=== PATIENT | male | born 1950 | race Caucasian/White ===

== ENCOUNTER 2017-03-28 18:12 | Inpatient (IN) | payer MEDICARE, MEDICAID ==
--- NOTE | 2017-03-28 18:33 | ED Physician Chart ---
Chief Complaint/HPI - Patient Information Date Seen:: 03/28/17 Time Seen:: 18:20 Chief Complaint:: agitation History of Present Illness:: Patient sent from a group home facility for admission to [facility] for increasing agitation. Allergies:: Allergies Allergy/AdvReac Type Severity Reaction Status Date / Time No Known Allergies Allergy Verified 01/21/17 21:22 Historian:: Patient Review:: Transfer documents Reviewed Review of Systems - Review of Systems General/Constitutional: No fever, No chills Skin: No skin lesions Head: No headache Eyes: No loss of vision ENT: No earache, No sore throat Neck: No neck pain, No swelling Cardio Vascular: No chest pain, No palpitations Pulmonary: No SOB, No cough GI: No nausea, No vomiting G/U: No dysuria, No hematuria Musculoskeletal: No bone or joint pain, No back pain, No muscle pain Endocrine: No polyuria, No polydipsia Psychiatric: Prior psych history Hematopoietic: No bruising Allergic/Immuno: No urticaria Neurological: No syncope, Focal symptoms Past Medical History - Past Medical History Past Medical History: Other (dysphagia arthritis; atherosclerotic heart disease ; diabetes; sarcoidosis peripheral vascular disease hypercholesterolemia left hemiplegia hypertension; hemolytic anemia; major depression status post gastrointestinal hemorrhage; chronic kidney disease; status post deep vein thrombosis) Family History: Other (unavailable; patient is confused) Social History: Care Facility Surgical History: other (unavailable) Psychiatricy History: Depression Medication: Reviewed Family Medical History - Family Member Mother History Unknown: Yes Physical Exam - Physical Examination Other Gen/Cons comments:: Mildly chronically ill-appearing; patient is confused; he states the year is 1470. Head: Atraumatic Eyes: Lids, conjuctiva normal, PERRL Skin: Nl inspection, No rash ENMT: External ears, nose nl, Lips, teeth, gums nl, Oropharynx nl Neck: No nuchal rigidity Respiratory: Nl effort/Exclusion, Clear to Auscultation, No Wheeze/Rhonchi/Rales Cardio Vascular: RRR, No murmur, gallop, rubs, NL S1 S2 GI: No tenderness/rebounding/guarding, No organomegaly, No hernia, Normal BS's : No CVA tenderness Other Extremities comments:: Paralysis left arm and left leg; left wrist and left hand contractured Labs/Radiology/EKG Results - Lab Results Results: Laboratory Results - last 24 hr 03/28/17 03/28/17 18:33 18:33 WBC 4.9 RBC 3.43 L Hgb 10.2 L Hct 29.8 L MCV 86.7 MCH 29.8 MCHC Differential 34.4 RDW 16.2 Plt Count 144 L MPV 6.3 Neutrophils % 53.9 Lymphocytes % 31.2 Monocytes % 8.3 Eosinophils % 4.7 Basophils % 1.9 Sodium 136 Potassium 4.1 Chloride 106 Carbon Dioxide 23.8 Anion Gap 10.3 BUN 40 H Creatinine 1.9 H Est GFR ( Amer) 45.6 Est GFR (Non-Af Amer) 37.7 BUN/Creatinine Ratio 21.1 Glucose 116 H Calcium 9.5 Total Bilirubin 0.3 AST 25 ALT 20 Alkaline Phosphatase 89 Total Protein 6.8 Albumin 3.4 L Globulin 3.4 Albumin/Globulin Ratio 1.0 Triglycerides 266 H Cholesterol 147 LDL Cholesterol Direct 79 HDL Cholesterol 24 - EKG Interpretations Rate & Rhythm: normal sinus rhythm with a rate of 72 Ranson: left axis deviation ED Septic Shock - . Is Septic Shock (SBP<90, OR Lactate>4 mmol\L) present?: No Reassessment (Disposition) - Reassessment Reassessment Condition:: Unchanged - Diagnosis Diagnosis:: Anemia; renal insufficiency; dementia with agitation; cerebrovascular accident with left hemiparalysis - Patient Disposition Admitted to:: [facility] Admitting Medical Physician:: Tam Gregg Admitting Psych Physician:: Jose Miguel Goode Condition at Disposition:: Stable, Unchanged
[2017-03-28 18:42] LABS: % BASOPHILS 1.9 % (0.0-2.0); % EOSINOPHILS 4.7 % (0.0-5.0); % LYMPHOCYTES 31.2 % (20.0-50.0); % MONOCYTES 8.3 % (2.0-10.0); % NEUTROPHILS 53.9 % (40.0-80.0); HEMATOCRIT 29.8 % (39.0-49.0); HEMOGLOBIN 10.2 gm/dL (12.6-17.4); MEAN CELL VOLUME 86.7 fl (80-99); MEAN CORPUSCULAR HEMOGLOBIN 29.8 pg (27.0-31.0); MEAN CORPUSCULAR HGB CONC 34.4 pg (28.0-36.0); MEAN PLATELET VOLUME 6.3 fl; NEUTROPHILE ABSOLUTE 2.7 Th/cmm (1.8-8.0); PLATELET COUNT 144 Th/cmm (150-400); RED BLOOD COUNT 3.43 Mil/cmm (3.80-5.80); RED CELL DISTRIBUTION WIDTH 16.2 % (11.5-20.0); WHITE BLOOD COUNT 4.9 Th/cmm (4.8-10.8)
[2017-03-28 18:57] LABS: ANION GAP 10.3 (7.0-16.0); BILIRUBIN,TOTAL 0.3 mg/dL (0.3-1.0); BUN/CREATININE RATIO 21.1; CALCIUM SERUM 9.5 mg/dL (8.6-10.3); CARBON DIOXIDE 23.8 mEq/L (21.0-31.0); CREATININE - SERUM 1.9 mg/dL (0.7-1.3); POTASSIUM SERUM 4.1 mEq/L (3.5-5.1)
[2017-03-28 20:11] VITALS: BP 107/53
[2017-03-28] MEDS ORDERED: Maalox 30 mL Cup PO PRN (20:14)
[2017-03-28] MEDS ORDERED: Fleet Enema 135 mL RC PRN (20:14)
[2017-03-28] MEDS ORDERED: Magnesium Hydroxide (MOM) 30 mL UDC PO PRN (20:21)
[2017-03-28] MEDS: INSULIN ASPART SLIDING SCALE 100 UNITS/ML UNIT SUBQ SCH (21:13)
[2017-03-28] MEDS: Atorvastatin Calcium 10 MG TAB PO SCH (21:13)
[2017-03-28 23:40] LABS: URINE BILIRUBIN NEGATIVE (NEGATIVE); URINE BLOOD NEGATIVE (NEGATIVE); URINE COLOR YELLOW; URINE GLUCOSE (UA) NEGATIVE (NEGATIVE); URINE KETONE NEGATIVE (NEGATIVE); URINE PROTEIN NEGATIVE (NEGATIVE)
[2017-03-28 23:41] LABS: URINE BACTERIA FEW /hpf (NONE SEEN); URINE EPITHELIAL CELLS RARE /lpf (FEW); URINE RBC NONE SEEN /hpf (0-5); URINE WBC 0-2 /hpf (0-5)
[2017-03-29] MEDS: INSULIN ASPART SLIDING SCALE 100 UNITS/ML UNIT SUBQ SCH ×4 (06:48→21:26)
[2017-03-29] MEDS: Dextromethorphan/Quinidine 20mg/10mg Cap PO SCH ×2 (08:57→16:43)
[2017-03-29] MEDS: Vitamin D3 2,000 IU SGL PO SCH ×2 (08:57→16:43)
[2017-03-29] MEDS: Lactobacillus Rhamnosus 10 Billion CFU Capsule PO SCH (08:57)
[2017-03-29] MEDS ORDERED: Non-Formulary Item 1 EA (Amino Acids/Protein Hydrolys [Pro-Stat Sugar Free Liquid] 30 ML) PO SCH (09:00)
[2017-03-29] MEDS ORDERED: Hydrocodone/APAP 5mg/325mg Tab PO PRN (09:05)
--- NOTE | 2017-03-29 10:39 | History & Physical ---
ADMIT DATE: 03/28/2017 PATIENT IDENTIFICATION: A 67-year-old male. REQUESTING PHYSICIAN: Dr. Goode. PRESENTING COMPLAINT: "Why am I here, I want to go home." HISTORY OF PRESENT ILLNESS: This is a 67-year-old male who resides at [facility], has multiple medical problems, recently noted by nursing staff that the patient was having aggressive behavior, spitting, and masturbating in front of female staff. The patient was sent to Emergency Room where the patient was advised to be admitted after being evaluated by [facility] Geropsych Unit. PAST MEDICAL HISTORY: Remarkable for: 1. Diabetes. 2. Hypertension. 3. Hyperlipidemia. 4. DVT. 5. CVA with left-sided weakness. 6. DJD. 7. Anxiety, depression. 8. History of sarcoidosis. MEDICATIONS: List has been reviewed and reconciled. ALLERGIES: None. SOCIAL HISTORY: Lives in a halfway. No smoking cigarette, alcohol or drug use. FAMILY MEDICAL HISTORY: Remarkable for diabetes and hypertension. REVIEW OF SYSTEMS: The patient currently denies any headache, blurred vision, double vision, dysphagia, odynophagia, runny nose, stuffy nose, fever, chills, cough, chest pain, shortness of breath, palpitation, dizziness, nausea, vomiting, diarrhea, no history of any hematemesis, hematuria, hematochezia, or melena. PHYSICAL EXAMINATION: GENERAL: Alert, awake, oriented, lying in the bed without any acute distress. VITAL SIGNS: Temperature 99, pulse is 74, respiratory rate 18, blood pressure 132/70. SKIN: Warm to touch. HEENT: Normocephalic, atraumatic. Extraocular muscles are intact. Tongue was pink and coated. Poor dentition with no oral lesion, no exudate. No sinus tenderness. NECK: Supple, no JVD, no hepatojugular reflux. No lymphadenopathy, thyromegaly or carotid bruit. HEART: Both heart sounds are regular. No S3, no S4, no murmur. CHEST: Lung equal in expansion, no wheezing, no crackles. ABDOMEN: Soft. No guarding, no rigidity. Liver, spleen not palpable. No palpable mass. EXTREMITIES: No edema, no cyanosis or clubbing. Peripheral pulses +1. No calf tenderness noted. NEUROLOGIC: Alert, awake, and oriented to time, place, person, 2-12 cranial nerves are intact. Power in upper extremity and lower extremity on the right side is 5+, lower extremity left-sided weakness with spasticity noted. AVAILABLE DIAGNOSTIC DATA: Performed in the Emergency Room. Urinalysis is normal. BUN and creatinine is 40 and 1.9. Electrolytes are within normal limits. TSH of 2.65, triglyceride of 266. HDL and LDL are normal. White count 4.9, hemoglobin 10.2, platelet count of 144. Other diagnostic data are unavailable for review. CLINICAL IMPRESSION: 1. Psychotic disorder. 2. Diabetes. 3. Hypertension. 4. Hyperlipidemia. 5. History of deep venous thrombosis. 6. Degenerative joint disease. 7. Chronic kidney disease. 8. Normocytic normochromic anemia secondary to anemia of inflammation. 9. Debility. 10. ____ with left-sided weakness. 11. History of sarcoidosis. 12. Coronary artery disease. 13. Fall risk. PLAN: 1. The patient is to be admitted to Geropsych Unit for psychiatric management by Dr. Goode. 2. Appropriate home medicine reconciliation for his underlying medical problems, which include diabetes, hypertension, hyperlipidemia, coronary artery disease, DJD. The patient is to have fall precautions, general nursing care along with monitoring the vital signs, blood sugar, and for behavior. We will continue to follow this patient during the stay at the Geropsych Unit at the [facility]. I sincerely thank you, Dr. Jose Miguel Goode for giving me the opportunity to participate in patient of yours. JOB# [id number]
[2017-03-29] MEDS: Atorvastatin Calcium 10 MG TAB PO SCH (20:19)
--- NOTE | 2017-03-29 23:05 | Admit Criteria Form ---
Admit Criteria Forms - Admit Criteria Diagnosis: PSYCHIATRIC DISORDERS (Place 'X' for any and all applicable criteria): Ongoing inpatient care may be needed for 1 or more of the following(1)(2)(3)(4)( 6)(7)(8): [ ]I. Danger to self or others not manageable at lower level of care. [ ]II. Grave disability (eg, inability to perform self care necessary at lower level of care) [X ]III. Agitation or inappropriate behavior interfering with care for primary condition (eg, attempting to discontinue lines or drains prematurely, unable to cooperate with respiratory care) [ ]IV. Severe disability or disorder indicated by ALL of the following: [ ]a) Severe behavioral health disorder-related symptoms or condition indicated by 1 or more of the following: [ ]i) Severe problem with cognition, memory, judgment, or impulse control [ ]ii) Severe clinical manifestations (eg, hallucinations, delusions, other acute psychotic symptoms, jolynn, extreme agitation or anxiety) [ ]b) Patient management at lower level of care is not feasible until acute intervention or modification is initiated. Extended stay beyond goal length of stay for the primary condition may be needed until ALLof the following are present(1)(2)(3)(4)(722)(23): [ ]a) Danger to self or others is absent or manageable at lower level of care [ ]b) Behavior crisis management, including physical or chemical restraints, is required and is not available at a lower level of care. [ ]c) Behavioral symptoms (e.g., agitation, somnolence, inappropriate behavior) are present, and are not manageable at a lower level of care. [ ]d) Patient cannot understand follow-up treatment and crisis plan. [ ]e) Provider and supports are sufficiently available at lower level of care. [ ]f) Patient can participate (e.g., verify absence of plan for harm) and is in needed of monitoring. The original [facility] content created by [facility] [employer] has been revised. The portions of the content which have been revised are identified through the use of italic text or in bold, and [facility] [employer] has neither reviewed nor approved the modified material. All other unmodified content is copyright [facility]. Please see references footnoted in the original [facility] edition 2017 Admit Criteria Met?: Yes
--- NOTE | 2017-03-30 02:09 | Psychosocial Evaluation ---
DATE OF SERVICE: 03/29/2017 AGE: 67. SEX: Male. PHYSICIAN: Dr. Goode. CHIEF COMPLAINT: Agitation and aggressive behavior. HISTORY OF PRESENT ILLNESS: The patient is a 67-year-old male who was admitted to the hospital from [facility] because of increased agitation and aggressive behavior. The patient has been screaming and yelling and throwing food and other objects at staff in the facility. Also, has not been able to follow any of staff directions. The patient also has been suspicious and has been paranoid. The patient also has been forgetful. He is also responding to directions by yelling and screaming. PAST PSYCHIATRIC HISTORY: The patient has history of what seems to be dementia with psychosis. The patient is taking Nuedexta, Remeron and Zyprexa. PAST MEDICAL HISTORY: The patient is under the care of Dr. Gregg with no major medical problems. SOCIAL HISTORY: The patient lives in [facility]. No known alcohol or drug use. ALLERGIES: No known allergies. MENTAL STATUS EXAMINATION: The patient appears his stated age. Anxious. Restless. In irritable mood. Disheveled. Thought processes are circumstantial with flight of ideas. The patient is suspicious and paranoid, but he denies auditory or visual hallucinations. The patient denies suicidal or homicidal ideations. The patient is alert, but disoriented to time, place, person and situation. Impaired immediate and recent memory, but intact remote memory. Poor insight. Poor judgment. ASSESSMENT: PRIMARY DIAGNOSIS: Unspecified psychosis. SECONDARY DIAGNOSIS: Dementia, moderate to severe. TREATMENT PLAN: We will monitor the patient's behavior closely. Continue Zyprexa, Remeron and Nuedexta. We will follow up and do behavioral modification. ESTIMATED LENGTH OF STAY: 7-10 days. THE PATIENT'S STRENGTHS AND WEAKNESSES: The patient's strength is not clear at this time. Weaknesses is his ineffective coping and poor impulse control. AFTER DISCHARGE PLAN: Outpatient treatment and followup, will continue as an outpatient. CRITERIA FOR DISCHARGE: The patient will not be psychotic and have better impulse control and we will stabilize psychotropic medications. JOB# [id number]
[2017-03-30] MEDS: INSULIN ASPART SLIDING SCALE 100 UNITS/ML UNIT SUBQ SCH ×4 (06:58→20:39)
[2017-03-30] MEDS: Aspirin 81mg Chewable Tab PO SCH (09:12)
[2017-03-30] MEDS: Lactobacillus Rhamnosus 10 Billion CFU Capsule PO SCH (09:13)
[2017-03-30] MEDS: Dextromethorphan/Quinidine 20mg/10mg Cap PO SCH ×2 (09:13→17:28)
[2017-03-30] MEDS: Vitamin D3 2,000 IU SGL PO SCH ×2 (09:13→17:15)
--- NOTE | 2017-03-30 12:02 | Progress Notes ---
DATE: 03/30/2017 SUBJECTIVE: The patient seen, chart reviewed, discussed with staff. The patient is currently in the hospital _[facility] facility, increasing agitation and aggressive behaviors. He remains confused, forgetful, screaming, yelling, guarded, irritable. States he is here for "hernia operation." Has actually no idea why he is here, poorly oriented, somewhat restless, currently on olanzapine 10 mg twice daily, recent dose increased, initiation of this higher dose, also on mirtazapine tolerating well. No side effects. ASSESSMENT: The patient remains symptomatic, aggressive, screaming, yelling, confused, disoriented. PLAN: We will continue to monitor and titrate medications. Given continued safety concerns, they are continued concerns about discharge to a lower level of care. [facility]# [id number]
[2017-03-30] MEDS: Atorvastatin Calcium 10 MG TAB PO SCH (20:38)
[2017-03-31] MEDS: INSULIN ASPART SLIDING SCALE 100 UNITS/ML UNIT SUBQ SCH ×4 (06:44→20:56)
[2017-03-31] MEDS: Aspirin 81mg Chewable Tab PO SCH (09:16)
[2017-03-31] MEDS: Vitamin D3 2,000 IU SGL PO SCH ×2 (09:19→17:00)
[2017-03-31] MEDS: Dextromethorphan/Quinidine 20mg/10mg Cap PO SCH ×2 (09:20→17:01)
[2017-03-31] MEDS: Lactobacillus Rhamnosus 10 Billion CFU Capsule PO SCH (09:21)
--- NOTE | 2017-03-31 12:59 | Progress Notes ---
DATE: 03/31/2017 SUBJECTIVE: The patient seen, chart reviewed, discussed with staff. The patient is here due to agitation, aggressive behaviors, very confused, disoriented. Does not really know what is going on, remains intrusive, impulsive, unpredictable, history of dementia, CVA. Medications reviewed. Labs were reviewed. No side effects noted. ASSESSMENT: The patient remains symptomatic, aggressive, impulsive, unpredictable, here with agitation, combative behaviors. PLAN: We will continue to monitor, continue olanzapine at current dose, given safety concerns, there are continued risks to others given his presentation and we also need to confirm placement. He is to care for his basic needs. JOB# [id number]
[2017-03-31] MEDS: Atorvastatin Calcium 10 MG TAB PO SCH (20:52)
[2017-04-01] MEDS: INSULIN ASPART SLIDING SCALE 100 UNITS/ML UNIT SUBQ SCH ×2 (06:43→22:11)
[2017-04-01] MEDS: Dextromethorphan/Quinidine 20mg/10mg Cap PO SCH ×2 (09:33→17:11)
[2017-04-01] MEDS: Vitamin D3 2,000 IU SGL PO SCH ×2 (09:33→17:12)
[2017-04-01] MEDS: Lactobacillus Rhamnosus 10 Billion CFU Capsule PO SCH (09:33)
[2017-04-01] MEDS: Aspirin 81mg Chewable Tab PO SCH (09:33)
[2017-04-01] MEDS: Atorvastatin Calcium 10 MG TAB PO SCH (20:31)
[2017-04-02] MEDS: INSULIN ASPART SLIDING SCALE 100 UNITS/ML UNIT SUBQ SCH ×4 (06:29→20:22)
--- NOTE | 2017-04-02 09:19 | General Progress Note ---
Subjective - Review of Systems Subjective: Patient is seen and examined. Patient has a fluctuating mental status with aggressive behavior and aggresive behavior. Last 24-hour events noted. Glucoscan reviewed. MAR reviewed. Objective - Results Result Diagrams: 03/28/17 18:33 03/28/17 18:33 Recent Labs: Laboratory Last Values WBC 4.9 Th/cmm (4.8-10.8) 03/28/17 18:33 RBC 3.43 Mil/cmm (3.80-5.80) L 03/28/17 18:33 Hgb 10.2 gm/dL (12.6-17.4) L 03/28/17 18:33 Hct 29.8 % (39.0-49.0) L 03/28/17 18: MCV 86.7 fl (80-99) 03/28/17 18: MCH 29.8 pg (27.0-31.0) 03/28/17 18: MCHC Differential 34.4 pg (28.0-36.0) 03/28/17 18:33 RDW 16.2 % (11.5-20.0) 03/28/17 18:33 Plt Count 144 Th/cmm (150-400) L 03/28/17 18:33 MPV 6.3 fl 03/28/17 18:33 Neutrophils % 53.9 % (40.0-80.0) 03/28/17 18:33 Lymphocytes % 31.2 % (20.0-50.0) 03/28/17 18: Monocytes % 8.3 % (2.0-10.0) 03/28/17 18:33 Eosinophils % 4.7 % (0.0-5.0) 03/28/17 18:33 Basophils % 1.9 % (0.0-2.0) 03/28/17 18:33 Sodium 136 mEq/L (136-145) 03/28/17 18:33 Potassium 4.1 mEq/L (3.5-5.1) 03/28/17 18:33 Chloride 106 mEq/L (98-107) 03/28/17 18:33 Carbon Dioxide 23.8 mEq/L (21.0-31.0) 03/28/17 18:33 Anion Gap 10.3 (7.0-16.0) 03/28/17 18:33 BUN 40 mg/dL (7-25) H 03/28/17 18:33 Creatinine 1.9 mg/dL (0.7-1.3) H 03/28/17 18:33 Est GFR ( Amer) 45.6 ml/min (>90) 03/28/17 18:33 Est GFR (Non-Af Amer) 37.7 ml/min 03/28/17 18:33 BUN/Creatinine Ratio 21.1 03/28/17 18:33 Glucose 116 mg/dL (70-105) H 03/28/17 18:33 POC Glucose 79 MG/DL (70 - 105) 04/02/17 06:14 Calcium 9.5 mg/dL (8.6-10.3) 03/28/17 18:33 Total Bilirubin 0.3 mg/dL (0.3-1.0) 03/28/17 18:33 AST 25 U/L (13-39) 03/28/17 18:33 ALT 20 U/L (7-52) 03/28/17 18:33 Alkaline Phosphatase 89 U/L (34-104) 03/28/17 18:33 Total Protein 6.8 gm/dL (6.0-8.3) 03/28/17 18:33 Albumin 3.4 gm/dL (4.2-5.5) L 03/28/17 18:33 Globulin 3.4 gm/dL 03/28/17 18:33 Albumin/Globulin Ratio 1.0 (1.0-1.8) 03/28/17 18:33 Triglycerides 266 mg/dL (<150) H 03/28/17 18:33 Cholesterol 147 mg/dL (<200) 03/28/17 18:33 LDL Cholesterol Direct 79 mg/dL (75-193) 03/28/17 18:33 HDL Cholesterol 24 mg/dL (23-92) 03/28/17 18:33 TSH 2.65 uIU/ml (0.34-5.60) 03/28/17 18:33 Urine Source CLEAN C 03/28/17 20:00 Urine Color YELLOW 03/28/17 20:00 Urine Clarity CLEAR (CLEAR) 03/28/17 20:00 Urine pH 6.0 03/28/17 20:00 Ur Specific [place] 1.020 (1.005-1.030) 03/28/17 20:00 Urine Protein NEGATIVE mg/dL (NEGATIVE) 03/28/17 20:00 Urine Glucose (UA) NEGATIVE mg/dL (NEGATIVE) 03/28/17 20:00 Urine Ketones NEGATIVE mg/dL (NEGATIVE) 03/28/17 20:00 Urine Blood NEGATIVE (NEGATIVE) 03/28/17 20:00 Urine Nitrate NEGATIVE (NEGATIVE) 03/28/17 20:00 Urine Bilirubin NEGATIVE (NEGATIVE) 03/28/17 20:00 Urine Urobilinogen 1.0 E.U./dL (0.2 - 1.0) 03/28/17 20:00 Ur Leukocyte Esterase NEGATIVE (NEGATIVE) 03/28/17 20:00 Urine RBC NONE SEEN /hpf (0-5) 03/28/17 20:00 Urine WBC 0-2 /hpf (0-5) 03/28/17 20:00 Ur Epithelial Cells RARE /lpf (FEW) 03/28/17 20:00 Urine Bacteria FEW /hpf (NONE SEEN) 03/28/17 20:00 RPR NONREACTIVE (NONREACTIVE) 03/28/17 18:33 - Physical Exam Vitals and I&O: Vital Signs Temp 98.2 F 04/01/17 14:00 Pulse 90 04/01/17 17:11 Resp 20 04/01/17 14:00 BP 149/80 04/01/17 17:11 Pulse Ox 98 04/01/17 14:00 Intake & Output 04/01/17 04/02/17 04/02/17 18:59 06:59 18:59 Intake Total 900 60 Balance 900 60 Weight (lbs) 85.411 kg Intake: Oral 900 60 Other: # Voids 3 1 # Bowel Movements 1 1 Active Medications: Current Medications Acetaminophen (Tylenol) 650 mg PO Q6H PRN PRN Reason: Mild Pain/Headache/T above 101 Stop: 05/27/17 20:13 Acetaminophen/Hydrocodone Bitart ([place] 5mg/325mg) 1 tab PO Q6H PRN PRN Reason: Moderate Pain Stop: 05/28/17 09:04 Al Hydrox/Mg Hydrox/Simethicone (Maalox) 30 ml PO Q6H PRN PRN Reason: Dyspepsia Stop: 05/27/17 20:13 Aspirin (Aspirin Chewable) 81 mg PO DAILY [facility] Stop: 05/29/17 08:59 Last Admin: 04/01/17 09:33 Dose: 81 mg Atorvastatin Calcium (Lipitor) 10 mg PO HS KENDRICK PRN Reason: Protocol Stop: 05/27/17 20:59 Last Admin: 04/01/17 20:31 Dose: 10 mg Carvedilol (Coreg) 12.5 mg PO BID KENDRICK Stop: 05/28/17 08:59 Last Admin: 04/01/17 17:11 Dose: 12.5 mg Cholecalciferol (Vitamin D3) 1,000 iu PO BID KENDRICK Stop: 05/28/17 08:59 Last Admin: 04/01/17 17:12 Dose: 1,000 iu Clopidogrel Bisulfate (Plavix) 75 mg PO DAILY KENDRICK Stop: 05/29/17 08:59 Last Admin: 04/01/17 09:32 Dose: 75 mg Dextromethorphan/Quinidine (Nuedexta 20mg-10mg) 1 cap PO BID KENDRICK Stop: 05/28/17 08:59 Last Admin: 04/01/17 17:11 Dose: 1 cap Docusate Sodium (Colace) 100 mg PO BID KENDRICK Stop: 05/28/17 08:59 Last Admin: 04/01/17 17:12 Dose: 100 mg Duloxetine HCl (Cymbalta) 60 mg PO DAILY [facility] PRN Reason: Protocol Stop: 05/29/17 08:59 Last Admin: 04/01/17 09:32 Dose: 60 mg Folic Acid (Folate) 1 mg PO DAILY KENDRICK Stop: 05/29/17 08:59 Last Admin: 04/01/17 09:33 Dose: 1 mg Insulin Aspart (Novolog Insulin Sliding Scale) 0 units SUBQ ACHS KENDRICK PRN Reason: Protocol Stop: 05/27/17 20:59 Last Admin: 04/02/17 06:29 Dose: Not Given Lactobacillus Rhamnosus (Culturelle) 1 each PO DAILY KENDRICK Stop: 05/28/17 08:59 Last Admin: 04/01/17 09:33 Dose: 1 each Lorazepam (Ativan) 1 mg PO Q6H PRN; Protocol PRN Reason: Anxiety/Agitation Stop: 05/27/17 20:13 Last Admin: 04/02/17 01:23 Dose: 1 mg Losartan Potassium (Cozaar) 50 mg PO DAILY KENDRICK Stop: 05/28/17 08:59 Last Admin: 04/01/17 09:34 Dose: Not Given Magnesium Hydroxide (Milk Of Magnesia) 30 ml PO HS PRN PRN Reason: Constipation Stop: 05/27/17 20:20 Megestrol Acetate (Megace) 400 mg PO BID KENDRICK Stop: 05/28/17 16:59 Last Admin: 04/01/17 09:34 Dose: Not Given Mirtazapine (Remeron) 30 mg PO HS KENDRICK Stop: 05/27/17 20:59 Last Admin: 04/01/17 20:31 Dose: 30 mg Olanzapine (Zyprexa) 10 mg PO BID KENDRICK PRN Reason: Protocol Stop: 05/29/17 08:59 Last Admin: 04/01/17 17:12 Dose: 10 mg Sodium Phosphate (Fleet Enema) 135 ml RC DAILY PRN PRN Reason: Constipation Stop: 05/27/17 20:13 Temazepam (Restoril) 15 mg PO HS PRN; Protocol PRN Reason: Insomnia Stop: 05/27/17 20:20 Last Admin: 04/01/17 20:32 Dose: 15 mg Vitamin D (Vitamin D3) 4,000 iu PO BID KENDRICK Stop: 05/28/17 08:59 Last Admin: 04/01/17 17:12 Dose: 4,000 iu General: Alert, No acute distress HEENT: Atraumatic, EOMI Neck: Supple, JVD Cardiovascular: Regular rate, Normal S1, Normal S2, Systolic murmurs Lungs: Clear to auscultation Abdomen: Bowel sounds, Soft Extremities: Other (no edema, cyanosis, clubbing.) Neurological: Other (significant spasticity and weakness on the left side noted. ) Psych/Mental Status: Other (labile mental status.) Assessment/Plan - Assessment Assessment: Psychiatric disorder Diabetes mellitus. Hypertension. CVA with left-sided weakness. DJD. Fall risk. History of sarcoidosis. History of DVT. Upper GI bleed history. - Plan Plan: After reviewing the record and assessment patient will be continued on current medication as patient is receiving for his underlying problems for diabetes, hypertension, CVA, DJD, and history of DVT. Patient will continue to receive psychiatric treatment with psychiatrist as prescribed. Patient will get general care ,fall precautions ,nutritional supplement along with the monitoring of diabetes and hypertension. Nutritional Asmnt/Malnutr-PDOC - Dietary Evaluation Malnutrition Findings (Please click <Entered> for more info): Nutritional Asmnt/Malnutrition Start: 04/01/17 12: 39 Text: Status: Complete Freq: Document 04/01/17 12:39 GSUN (Rec: 04/01/17 13:07 GSUN [email or web address]) Nutritional Asmnt/Malnutrition Patient General Information Nutritional Screening Moderate Risk Screening Diagnosis Unspecified psychosis Pertinent Medical Hx/Surgical Hx DM, HTN, hyperlipidemia, DVT, CVA with left sided wekaness, DJD, anxiety, dperession, hx sarcoidosis Subjective Information 67 year old male from SNF. Per nursing staff, pt may be inappropriate towards staff at times. Pt was quiet, selectively responded, mostly answered yes or no during visit. Avg PO intake 63% of past 6 meals, meeting 55% lower end kcal and 74% prot needs. Pt denied GI problems, denied allergies, denied nutritional concerns. Teeth intact. RD informed pt not meeting nutritional needs, encouraged PO intake, pt remained silent. Mild wasting to clavicles. Pt report UBW 200lb, bedscale 188.3lb during visit, does not know weight trend. Current Diet Order/ Nutrition Support [facility] Pertinent Medications Maalox, Lipitor, Vitamin D3, Colace, Folate, Novolog, Culturelle, MOM, Megace, Fleet Enema, Vitamin D3 Pertinent Labs 03/28: BUN 40H, creatinine 1.9H , triglycerides 266H 04/01: POC glucose 87-142 since adm Nutritional Hx/Data Height 1.8 m Height (Calculated Centimeters) 180.3 Current Weight (lbs) 85.411 kg Weight (Calculated Kilograms) 85.4 Weight (Calculated Grams) 06631.4 Usual body Weight (lbs) 200 [place] Body Weight 172 Weight Status Overweight GI Symptoms Usual diet at home [facility]: [facility] soft Skin Integrity/Comment: Andre Hobbs stitcher utility: dryness. Current %PO Fair (50-74%) Estimated Nutritional Goals Calories/Kcals/Kg IBW 172lb/78.2kg Kcals Calculated 1955-2346kcal (25-30kcal/kg) Protein Calculated 78g (1g/kg) Fluid: ml 1955-2346ml (1ml/kcal) Nutritional Problem 2. Problem Problem Inadequate oral food beverage intake related to Etiology unknown etiology aeb Signs/Symptoms: PO intake meeting 55% lower end kcal and 74% prot needs. 1. Problem Problem Altered nutrition related laboraotry values related to Etiology DM aeb Signs/Symptoms: H&P, elevated POC glucose Intervention/Recommendation Comments 1. Recommend [id number] RONEN ground to meet nutritional needs while promoting glycemic control. 2. Continue with Boost Glucose Control TID. 3. Avg PO intake is inadequate , meeting 55% lower end of kcal needs. Nursing staff to encourage and assist with meals as needed. 4. Remove "HPN - sugar free with meals for supplement 8oz TID," FNS does not honor. Expected Outcomes/Goals Expected Outcomes/Goals 1. PO intake to meet at least 75% of estimated nutritional needs.
[2017-04-02] MEDS: Vitamin D3 2,000 IU SGL PO SCH ×2 (09:48→17:19)
[2017-04-02] MEDS: Lactobacillus Rhamnosus 10 Billion CFU Capsule PO SCH (09:49)
[2017-04-02] MEDS: Aspirin 81mg Chewable Tab PO SCH (09:49)
[2017-04-02] MEDS: Dextromethorphan/Quinidine 20mg/10mg Cap PO SCH ×2 (09:49→17:19)
[2017-04-02] MEDS: Atorvastatin Calcium 10 MG TAB PO SCH (20:19)
--- NOTE | 2017-04-02 21:14 | Progress Notes ---
DATE: 04/02/2017 SUBJECTIVE: Chart reviewed and the patient interviewed. Also, discussed the patient's condition with the staff and reviewed records and labs. The patient continues to scream, "help, help." When staff tried to approach him and ask him what he needs to help to, he is unable to answer. He is still in angry and in irritable mood, and he is still suspicious and paranoid. The patient also still has labile affect. He also still seems to be preoccupied and talking to self. He is also showing inappropriate behavior and masturbating in front of staff and still at times has some verbal commands. Otherwise, the patient is compliant with taking his medications. ASSESSMENT: The patient is still psychotic. TREATMENT PLAN: We will continue to monitor his behavior and his condition closely. Also, we will continue to work on his irritability and inappropriate behavior. Also, Zyprexa was increased to 10 mg twice a day. We will continue same dose and continue to follow up closely. [facility]# [id number]
[2017-04-03] MEDS: INSULIN ASPART SLIDING SCALE 100 UNITS/ML UNIT SUBQ SCH ×4 (06:31→20:45)
[2017-04-03] MEDS: Lactobacillus Rhamnosus 10 Billion CFU Capsule PO SCH (08:36)
[2017-04-03] MEDS: Dextromethorphan/Quinidine 20mg/10mg Cap PO SCH ×2 (08:36→16:34)
[2017-04-03] MEDS: Vitamin D3 2,000 IU SGL PO SCH ×2 (08:36→16:34)
[2017-04-03] MEDS: Aspirin 81mg Chewable Tab PO SCH (08:37)
--- NOTE | 2017-04-03 20:27 | Progress Notes ---
DATE: 04/02/2017 SUBJECTIVE: Chart was reviewed. The patient interviewed. Also, discussed the patient's condition with the staff and reviewed records and labs. The patient continued to be in angry and in irritable mood. The patient also still has episodes of screaming "help, help." He is unable to express himself and when the staff approaches him to help him, he has no reason to scream and yell and he needs nothing .. At the same time, the patient is still restless and disheveled and has nasty language and makes comments to staff. ASSESSMENT: The patient is still psychotic and agitated. TREATMENT PLAN: Continue Zyprexa in a dose of 10 mg twice a day. Also, continue to work on his irritability and his anger, and we will continue to follow up closely. JOB# [id number]
[2017-04-03] MEDS: Atorvastatin Calcium 10 MG TAB PO SCH (20:44)
--- NOTE | 2017-04-03 22:03 | Internal Medicine Prog Note ---
Internal Medicine Subjective - Subjective Service Date: 04/03/17 Patient seen and examined:: without staff Patient is:: awake, in bed, confused Per staff patient has:: no adverse event Internal Medicine Objective - Results Result Diagrams: 03/28/17 18:33 03/28/17 18:33 Recent Labs: Laboratory Last Values WBC 4.9 Th/cmm (4.8-10.8) 03/28/17 18:33 RBC 3.43 Mil/cmm (3.80-5.80) L 03/28/17 18:33 Hgb 10.2 gm/dL (12.6-17.4) L 03/28/17 18:33 Hct 29.8 % (39.0-49.0) L 03/28/17 18: MCV 86.7 fl (80-99) 03/28/17 18: MCH 29.8 pg (27.0-31.0) 03/28/17 18: MCHC Differential 34.4 pg (28.0-36.0) 03/28/17 18:33 RDW 16.2 % (11.5-20.0) 03/28/17 18:33 Plt Count 144 Th/cmm (150-400) L 03/28/17 18:33 MPV 6.3 fl 03/28/17 18:33 Neutrophils % 53.9 % (40.0-80.0) 03/28/17 18:33 Lymphocytes % 31.2 % (20.0-50.0) 03/28/17 18: Monocytes % 8.3 % (2.0-10.0) 03/28/17 18:33 Eosinophils % 4.7 % (0.0-5.0) 03/28/17 18:33 Basophils % 1.9 % (0.0-2.0) 03/28/17 18:33 Sodium 136 mEq/L (136-145) 03/28/17 18:33 Potassium 4.1 mEq/L (3.5-5.1) 03/28/17 18:33 Chloride 106 mEq/L (98-107) 03/28/17 18:33 Carbon Dioxide 23.8 mEq/L (21.0-31.0) 03/28/17 18:33 Anion Gap 10.3 (7.0-16.0) 03/28/17 18:33 BUN 40 mg/dL (7-25) H 03/28/17 18:33 Creatinine 1.9 mg/dL (0.7-1.3) H 03/28/17 18:33 Est GFR ( Amer) 45.6 ml/min (>90) 03/28/17 18:33 Est GFR (Non-Af Amer) 37.7 ml/min 03/28/17 18:33 BUN/Creatinine Ratio 21.1 03/28/17 18:33 Glucose 116 mg/dL (70-105) H 03/28/17 18:33 POC Glucose 151 MG/DL (70 - 105) H 04/03/17 20:35 Calcium 9.5 mg/dL (8.6-10.3) 03/28/17 18:33 Total Bilirubin 0.3 mg/dL (0.3-1.0) 03/28/17 18:33 AST 25 U/L (13-39) 03/28/17 18:33 ALT 20 U/L (7-52) 03/28/17 18:33 Alkaline Phosphatase 89 U/L (34-104) 03/28/17 18:33 Total Protein 6.8 gm/dL (6.0-8.3) 03/28/17 18:33 Albumin 3.4 gm/dL (4.2-5.5) L 03/28/17 18:33 Globulin 3.4 gm/dL 03/28/17 18:33 Albumin/Globulin Ratio 1.0 (1.0-1.8) 03/28/17 18:33 Triglycerides 266 mg/dL (<150) H 03/28/17 18:33 Cholesterol 147 mg/dL (<200) 03/28/17 18:33 LDL Cholesterol Direct 79 mg/dL (75-193) 03/28/17 18:33 HDL Cholesterol 24 mg/dL (23-92) 03/28/17 18:33 TSH 2.65 uIU/ml (0.34-5.60) 03/28/17 18:33 Urine Source CLEAN C 03/28/17 20:00 Urine Color YELLOW 03/28/17 20:00 Urine Clarity CLEAR (CLEAR) 03/28/17 20:00 Urine pH 6.0 03/28/17 20:00 Ur Specific [place] 1.020 (1.005-1.030) 03/28/17 20:00 Urine Protein NEGATIVE mg/dL (NEGATIVE) 03/28/17 20:00 Urine Glucose (UA) NEGATIVE mg/dL (NEGATIVE) 03/28/17 20:00 Urine Ketones NEGATIVE mg/dL (NEGATIVE) 03/28/17 20:00 Urine Blood NEGATIVE (NEGATIVE) 03/28/17 20:00 Urine Nitrate NEGATIVE (NEGATIVE) 03/28/17 20:00 Urine Bilirubin NEGATIVE (NEGATIVE) 03/28/17 20:00 Urine Urobilinogen 1.0 E.U./dL (0.2 - 1.0) 03/28/17 20:00 Ur Leukocyte Esterase NEGATIVE (NEGATIVE) 03/28/17 20:00 Urine RBC NONE SEEN /hpf (0-5) 03/28/17 20:00 Urine WBC 0-2 /hpf (0-5) 03/28/17 20:00 Ur Epithelial Cells RARE /lpf (FEW) 03/28/17 20:00 Urine Bacteria FEW /hpf (NONE SEEN) 03/28/17 20:00 RPR NONREACTIVE (NONREACTIVE) 03/28/17 18:33 - Physical Exam Vitals and I&O: Vital Signs Temp 97.8 F 04/03/17 17:57 Pulse 75 04/03/17 17:57 Resp 20 04/03/17 17:57 BP 147/92 04/03/17 16:34 Pulse Ox 98 04/03/17 17:57 Intake & Output 04/03/17 04/03/17 04/04/17 06:59 18:59 06:59 Intake Total 760 800 Balance 760 800 Intake: Oral 760 800 Other: # Voids 1 3 # Bowel Movements 1 1 Active Medications: Current Medications Acetaminophen (Tylenol) 650 mg PO Q6H PRN PRN Reason: Mild Pain/Headache/T above 101 Stop: 05/27/17 20:13 Acetaminophen/Hydrocodone Bitart ([place] 5mg/325mg) 1 tab PO Q6H PRN PRN Reason: Moderate Pain Stop: 05/28/17 09:04 Al Hydrox/Mg Hydrox/Simethicone (Maalox) 30 ml PO Q6H PRN PRN Reason: Dyspepsia Stop: 05/27/17 20:13 Aspirin (Aspirin Chewable) 81 mg PO DAILY KENDRICK Stop: 05/29/17 08:59 Last Admin: 04/03/17 08:37 Dose: 81 mg Atorvastatin Calcium (Lipitor) 10 mg PO HS KENDRICK PRN Reason: Protocol Stop: 05/27/17 20:59 Last Admin: 04/03/17 20:44 Dose: 10 mg Carvedilol (Coreg) 12.5 mg PO BID KENDRICK Stop: 05/28/17 08:59 Last Admin: 04/03/17 16:34 Dose: 12.5 mg Cholecalciferol (Vitamin D3) 1,000 iu PO BID KENDRICK Stop: 05/28/17 08:59 Last Admin: 04/03/17 16:33 Dose: 1,000 iu Clopidogrel Bisulfate (Plavix) 75 mg PO DAILY [facility] Stop: 05/29/17 08:59 Last Admin: 04/03/17 08:36 Dose: 75 mg Dextromethorphan/Quinidine (Nuedexta 20mg-10mg) 1 cap PO BID KENDRICK Stop: 05/28/17 08:59 Last Admin: 04/03/17 16:34 Dose: 1 cap Docusate Sodium (Colace) 100 mg PO BID KENDRICK Stop: 05/28/17 08:59 Last Admin: 04/03/17 16:34 Dose: 100 mg Duloxetine HCl (Cymbalta) 60 mg PO DAILY [facility] PRN Reason: Protocol Stop: 05/29/17 08:59 Last Admin: 04/03/17 08:36 Dose: 60 mg Folic Acid (Folate) 1 mg PO DAILY KENDRICK Stop: 05/29/17 08:59 Last Admin: 04/03/17 08:37 Dose: 1 mg Insulin Aspart (Novolog Insulin Sliding Scale) 0 units SUBQ ACHS KENDRICK PRN Reason: Protocol Stop: 05/27/17 20:59 Last Admin: 04/03/17 20:45 Dose: 2 units Lactobacillus Rhamnosus (Culturelle) 1 each PO DAILY [facility] Stop: 05/28/17 08:59 Last Admin: 04/03/17 08:36 Dose: 1 each Lorazepam (Ativan) 1 mg PO Q6H PRN; Protocol PRN Reason: Anxiety/Agitation Stop: 05/27/17 20:13 Last Admin: 04/02/17 01:23 Dose: 1 mg Losartan Potassium (Cozaar) 50 mg PO DAILY [facility] Stop: 05/28/17 08:59 Last Admin: 04/03/17 08:37 Dose: 50 mg Magnesium Hydroxide (Milk Of Magnesia) 30 ml PO HS PRN PRN Reason: Constipation Stop: 05/27/17 20:20 Megestrol Acetate (Megace) 400 mg PO BID KENDRICK Stop: 05/28/17 16:59 Last Admin: 04/03/17 16:34 Dose: 400 mg Mirtazapine (Remeron) 30 mg PO HS KENDRICK Stop: 05/27/17 20:59 Last Admin: 04/03/17 20:44 Dose: 30 mg Olanzapine (Zyprexa) 10 mg PO BID KENDRICK PRN Reason: Protocol Stop: 05/29/17 08:59 Last Admin: 04/03/17 16:34 Dose: 10 mg Sodium Phosphate (Fleet Enema) 135 ml RC DAILY PRN PRN Reason: Constipation Stop: 05/27/17 20:13 Temazepam (Restoril) 15 mg PO HS PRN; Protocol PRN Reason: Insomnia Stop: 05/27/17 20:20 Last Admin: 04/03/17 20:45 Dose: 15 mg Vitamin D (Vitamin D3) 4,000 iu PO BID KENDRICK Stop: 05/28/17 08:59 Last Admin: 04/03/17 16:34 Dose: 4,000 iu General: alert, demented HEENT: NC/AT, PERRLA, EOMI, anicteric sclerae Neck: Supple, No JVD, No thyromegaly, +2 carotid pulse wo bruit, No LAD Lungs: CTAB Cardiovascular: RRR, Normal S1, Normal S2, without murmur Abdomen: non-tender Extremities: clear Neurological: no change Internal Medicine Assmt/Plan - Assessment Assessment: 1.dm. 2.htn 3.cva. 4.psychosis. - Plan Plan: continue on current medication and diet. Nutritional Asmnt/Malnutr-PDOC - Dietary Evaluation Malnutrition Findings (Please click <Entered> for more info): Nutritional Asmnt/Malnutrition Start: 04/01/17 12: 39 Text: Status: Complete Freq: Document 04/01/17 12:39 GSUN (Rec: 04/01/17 13:07 [email or web address]) Nutritional Asmnt/Malnutrition Patient General Information Nutritional Screening Moderate Risk Screening Diagnosis Unspecified psychosis Pertinent Medical Hx/Surgical Hx DM, HTN, hyperlipidemia, DVT, CVA with left sided wekaness, DJD, anxiety, dperession, hx sarcoidosis Subjective Information 67 year old male from SNF. Per nursing staff, pt may be inappropriate towards staff at times. Pt was quiet, selectively responded, mostly answered yes or no during visit. Avg PO intake 63% of past 6 meals, meeting 55% lower end kcal and 74% prot needs. Pt denied GI problems, denied allergies, denied nutritional concerns. Teeth intact. RD informed pt not meeting nutritional needs, encouraged PO intake, pt remained silent. Mild wasting to clavicles. Pt report UBW 200lb, bedscale 188.3lb during visit, does not know weight trend. Current Diet Order/ Nutrition Support [facility], [facility], [facility] soft ground Pertinent Medications Maalox, Lipitor, Vitamin D3, Colace, Folate, Novolog, Culturelle, MOM, Megace, Fleet Enema, Vitamin D3 Pertinent Labs 03/28: BUN 40H, creatinine 1.9H , triglycerides 266H 04/01: POC glucose 87-142 since adm Nutritional Hx/Data Height 1.8 m Height (Calculated Centimeters) 180.3 Current Weight (lbs) 85.411 kg Weight (Calculated Kilograms) 85.4 Weight (Calculated Grams) 68024.4 Usual body Weight (lbs) 200 [place] Body Weight 172 Weight Status Overweight GI Symptoms Usual diet at home [place] SNF: [facility], [facility], [facility] soft 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 Current %PO Fair (50-74%) Estimated Nutritional Goals Calories/Kcals/Kg IBW 172lb/78.2kg Kcals Calculated 1955-2346kcal (25-30kcal/kg) Protein Calculated 78g (1g/kg) Fluid: ml 1955-2346ml (1ml/kcal) Nutritional Problem 2. Problem Problem Inadequate oral food beverage intake related to Etiology unknown etiology aeb Signs/Symptoms: PO intake meeting 55% lower end kcal and 74% prot needs. 1. Problem Problem Altered nutrition related laboraotry values related to Etiology DM aeb Signs/Symptoms: H&P, elevated POC glucose Intervention/Recommendation Comments 1. Recommend [id number] RONEN ground to meet nutritional needs while promoting glycemic control. 2. Continue with Boost Glucose Control TID. 3. Avg PO intake is inadequate , meeting 55% lower end of kcal needs. Nursing staff to encourage and assist with meals as needed. 4. Remove "HPN - sugar free with meals for supplement 8oz TID," FNS does not honor. Expected Outcomes/Goals Expected Outcomes/Goals 1. PO intake to meet at least 75% of estimated nutritional needs.
[2017-04-04] MEDS: INSULIN ASPART SLIDING SCALE 100 UNITS/ML UNIT SUBQ SCH ×4 (06:42→20:26)
[2017-04-04] MEDS: Vitamin D3 2,000 IU SGL PO SCH ×2 (09:13→18:00)
[2017-04-04] MEDS: Lactobacillus Rhamnosus 10 Billion CFU Capsule PO SCH (09:14)
[2017-04-04] MEDS: Dextromethorphan/Quinidine 20mg/10mg Cap PO SCH ×2 (09:15→18:00)
[2017-04-04] MEDS: Aspirin 81mg Chewable Tab PO SCH (09:15)
--- NOTE | 2017-04-04 17:50 | Internal Medicine Prog Note ---
Internal Medicine Subjective - Subjective Patient seen and examined:: without staff Patient is:: awake, in bed, confused Per staff patient has:: no adverse event Internal Medicine Objective - Results Result Diagrams: 03/28/17 18:33 03/28/17 18:33 Recent Labs: Laboratory Last Values WBC 4.9 Th/cmm (4.8-10.8) 03/28/17 18:33 RBC 3.43 Mil/cmm (3.80-5.80) L 03/28/17 18:33 Hgb 10.2 gm/dL (12.6-17.4) L 03/28/17 18:33 Hct 29.8 % (39.0-49.0) L 03/28/17 18:33 MCV 86.7 fl (80-99) 03/28/17 18:33 MCH 29.8 pg (27.0-31.0) 03/28/17 18: MCHC Differential 34.4 pg (28.0-36.0) 03/28/17 18:33 RDW 16.2 % (11.5-20.0) 03/28/17 18:33 Plt Count 144 Th/cmm (150-400) L 03/28/17 18:33 MPV 6.3 fl 03/28/17 18:33 Neutrophils % 53.9 % (40.0-80.0) 03/28/17 18:33 Lymphocytes % 31.2 % (20.0-50.0) 03/28/17 18:33 Monocytes % 8.3 % (2.0-10.0) 03/28/17 18:33 Eosinophils % 4.7 % (0.0-5.0) 03/28/17 18:33 Basophils % 1.9 % (0.0-2.0) 03/28/17 18:33 Sodium 136 mEq/L (136-145) 03/28/17 18:33 Potassium 4.1 mEq/L (3.5-5.1) 03/28/17 18:33 Chloride 106 mEq/L (98-107) 03/28/17 18:33 Carbon Dioxide 23.8 mEq/L (21.0-31.0) 03/28/17 18:33 Anion Gap 10.3 (7.0-16.0) 03/28/17 18:33 BUN 40 mg/dL (7-25) H 03/28/17 18:33 Creatinine 1.9 mg/dL (0.7-1.3) H 03/28/17 18:33 Est GFR ( Amer) 45.6 ml/min (>90) 03/28/17 18:33 Est GFR (Non-Af Amer) 37.7 ml/min 03/28/17 18:33 BUN/Creatinine Ratio 21.1 03/28/17 18:33 Glucose 116 mg/dL (70-105) H 03/28/17 18:33 POC Glucose 130 MG/DL (70 - 105) H 04/04/17 16:25 Calcium 9.5 mg/dL (8.6-10.3) 03/28/17 18:33 Total Bilirubin 0.3 mg/dL (0.3-1.0) 03/28/17 18:33 AST 25 U/L (13-39) 03/28/17 18:33 ALT 20 U/L (7-52) 03/28/17 18:33 Alkaline Phosphatase 89 U/L (34-104) 03/28/17 18:33 Total Protein 6.8 gm/dL (6.0-8.3) 03/28/17 18:33 Albumin 3.4 gm/dL (4.2-5.5) L 03/28/17 18:33 Globulin 3.4 gm/dL 03/28/17 18:33 Albumin/Globulin Ratio 1.0 (1.0-1.8) 03/28/17 18:33 Triglycerides 266 mg/dL (<150) H 03/28/17 18:33 Cholesterol 147 mg/dL (<200) 03/28/17 18:33 LDL Cholesterol Direct 79 mg/dL (75-193) 03/28/17 18:33 HDL Cholesterol 24 mg/dL (23-92) 03/28/17 18:33 TSH 2.65 uIU/ml (0.34-5.60) 03/28/17 18:33 Urine Source CLEAN C 03/28/17 20:00 Urine Color YELLOW 03/28/17 20:00 Urine Clarity CLEAR (CLEAR) 03/28/17 20:00 Urine pH 6.0 03/28/17 20:00 Ur Specific [place] 1.020 (1.005-1.030) 03/28/17 20:00 Urine Protein NEGATIVE mg/dL (NEGATIVE) 03/28/17 20:00 Urine Glucose (UA) NEGATIVE mg/dL (NEGATIVE) 03/28/17 20:00 Urine Ketones NEGATIVE mg/dL (NEGATIVE) 03/28/17 20:00 Urine Blood NEGATIVE (NEGATIVE) 03/28/17 20:00 Urine Nitrate NEGATIVE (NEGATIVE) 03/28/17 20:00 Urine Bilirubin NEGATIVE (NEGATIVE) 03/28/17 20:00 Urine Urobilinogen 1.0 E.U./dL (0.2 - 1.0) 03/28/17 20:00 Ur Leukocyte Esterase NEGATIVE (NEGATIVE) 03/28/17 20:00 Urine RBC NONE SEEN /hpf (0-5) 03/28/17 20:00 Urine WBC 0-2 /hpf (0-5) 03/28/17 20:00 Ur Epithelial Cells RARE /lpf (FEW) 03/28/17 20:00 Urine Bacteria FEW /hpf (NONE SEEN) 03/28/17 20:00 RPR NONREACTIVE (NONREACTIVE) 03/28/17 18:33 - Physical Exam Vitals and I&O: Vital Signs Temp 98.1 F 04/04/17 07:14 Pulse 65 04/04/17 17:08 Resp 19 04/04/17 07:14 BP 113/65 04/04/17 17:08 Pulse Ox 97 04/04/17 07:14 Intake & Output 04/03/17 04/04/17 04/04/17 18:59 06:59 18:59 Intake Total 800 Balance 800 Intake: Oral 800 Other: # Voids 3 2 # Bowel Movements 1 Active Medications: Current Medications Acetaminophen (Tylenol) 650 mg PO Q6H PRN PRN Reason: Mild Pain/Headache/T above 101 Stop: 05/27/17 20:13 Acetaminophen/Hydrocodone Bitart ([place] 5mg/325mg) 1 tab PO Q6H PRN PRN Reason: Moderate Pain Stop: 05/28/17 09:04 Al Hydrox/Mg Hydrox/Simethicone (Maalox) 30 ml PO Q6H PRN PRN Reason: Dyspepsia Stop: 05/27/17 20:13 Aspirin (Aspirin Chewable) 81 mg PO DAILY KENDRICK Stop: 05/29/17 08:59 Last Admin: 08/03/17 09:15 Dose: 81 mg Atorvastatin Calcium (Lipitor) 10 mg PO HS KENDRICK PRN Reason: Protocol Stop: 05/27/17 20:59 Last Admin: 04/03/17 20:44 Dose: 10 mg Carvedilol (Coreg) 12.5 mg PO BID KENDRICK Stop: 05/28/17 08:59 Last Admin: 04/04/17 17:08 Dose: Not Given Cholecalciferol (Vitamin D3) 1,000 iu PO BID KENDRICK Stop: 05/28/17 08:59 Last Admin: 04/04/17 09:14 Dose: 1,000 iu Clopidogrel Bisulfate (Plavix) 75 mg PO DAILY K[facility]DR[facility] Stop: 05/29/17 08:59 Last Admin: 04/04/17 09:14 Dose: 75 mg Dextromethorphan/Quinidine (Nuedexta 20mg-10mg) 1 cap PO BID KENDRICK Stop: 05/28/17 08:59 Last Admin: 04/04/17 09:15 Dose: 1 cap Docusate Sodium (Colace) 100 mg PO BID KENDRICK Stop: 05/28/17 08:59 Last Admin: 04/04/17 09:16 Dose: 100 mg Duloxetine HCl (Cymbalta) 60 mg PO DAILY KENDRICK PRN Reason: Protocol Stop: 05/29/17 08:59 Last Admin: 04/04/17 09:13 Dose: 60 mg Folic Acid (Folate) 1 mg PO DAILY KENDRICK Stop: 05/29/17 08:59 Last Admin: 04/04/17 09:14 Dose: 1 mg Insulin Aspart (Novolog Insulin Sliding Scale) 0 units SUBQ ACHS KENDRICK PRN Reason: Protocol Stop: 05/27/17 20:59 Last Admin: 04/04/17 16:30 Dose: Not Given Lactobacillus Rhamnosus (Culturelle) 1 each PO DAILY KENDRICK Stop: 05/28/17 08:59 Last Admin: 04/04/17 09:14 Dose: 1 each Lorazepam (Ativan) 1 mg PO Q6H PRN; Protocol PRN Reason: Anxiety/Agitation Stop: 05/27/17 20:13 Last Admin: 04/02/17 01:23 Dose: 1 mg Losartan Potassium (Cozaar) 50 mg PO DAILY KENDRICK Stop: 05/28/17 08:59 Last Admin: 04/04/17 09:13 Dose: 50 mg Magnesium Hydroxide (Milk Of Magnesia) 30 ml PO HS PRN PRN Reason: Constipation Stop: 05/27/17 20:20 Megestrol Acetate (Megace) 400 mg PO BID KENDRICK Stop: 05/28/17 16:59 Last Admin: 04/04/17 09:15 Dose: 400 mg Mirtazapine (Remeron) 30 mg PO HS KENDRICK Stop: 05/27/17 20:59 Last Admin: 04/03/17 20:44 Dose: 30 mg Olanzapine (Zyprexa) 10 mg PO BID KENDRICK PRN Reason: Protocol Stop: 05/29/17 08:59 Last Admin: 04/04/17 09:14 Dose: 10 mg Sodium Phosphate (Fleet Enema) 135 ml RC DAILY PRN PRN Reason: Constipation Stop: 05/27/17 20:13 Temazepam (Restoril) 15 mg PO HS PRN; Protocol PRN Reason: Insomnia Stop: 05/27/17 20:20 Last Admin: 04/03/17 20:45 Dose: 15 mg Vitamin D (Vitamin D3) 4,000 iu PO BID [facility] Stop: 05/28/17 08:59 Last Admin: 04/04/17 09:13 Dose: 4,000 iu General: alert, demented HEENT: NC/AT, PERRLA, EOMI, anicteric sclerae Neck: Supple, No JVD, No thyromegaly, +2 carotid pulse wo bruit, No LAD Lungs: CTAB Cardiovascular: RRR, Normal S1, Normal S2, without murmur Abdomen: non-tender Extremities: clear Neurological: no change Internal Medicine Assmt/Plan - Assessment Assessment: 1.dm. 2.htn 3.cva. 4.psychosis. - Plan Plan: continue on current medication and diet. Nutritional Asmnt/Malnutr-PDOC - Dietary Evaluation Malnutrition Findings (Please click <Entered> for more info): Nutritional Asmnt/Malnutrition Start: 04/01/17 12: 39 Text: Status: Complete Freq: Document 04/01/17 12:39 GSUN (Rec: 04/01/17 13:07 [email or web address] [email or web address]) Nutritional Asmnt/Malnutrition Patient General Information Nutritional Screening Moderate Risk Screening Diagnosis Unspecified psychosis Pertinent Medical Hx/Surgical Hx DM, HTN, hyperlipidemia, DVT, CVA with left sided wekaness, DJD, anxiety, dperession, hx sarcoidosis Subjective Information 67 year old male from SNF. Per nursing staff, pt may be inappropriate towards staff at times. Pt was quiet, selectively responded, mostly answered yes or no during visit. Avg PO intake 63% of past 6 meals, meeting 55% lower end kcal and 74% prot needs. Pt denied GI problems, denied allergies, denied nutritional concerns. Teeth intact. RD informed pt not meeting nutritional needs, encouraged PO intake, pt remained silent. Mild wasting to clavicles. Pt report UBW 200lb, bedscale 188.3lb during visit, does not know weight trend. Current Diet Order/ [facility], [facility], [facility] soft ground Pertinent Medications Maalox, Lipitor, Vitamin D3, Colace, Folate, Novolog, Culturelle, MOM, Megace, Fleet Enema, Vitamin D3 Pertinent Labs 03/28: BUN 40H, creatinine 1.9H , triglycerides 266H 04/01: POC glucose 87-142 since adm Nutritional Hx/Data Height 1.8 m Height (Calculated Centimeters) 180.3 Current Weight (lbs) 85.411 kg Weight (Calculated Kilograms) 85.4 Weight (Calculated Grams) 78494.4 Usual body Weight (lbs) 200 [place] Body Weight 172 Weight Status Overweight GI Symptoms Usual diet at home [place] [facility]: [facility], [facility], [facility] soft 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 Current %PO Fair (50-74%) Estimated Nutritional Goals Calories/Kcals/Kg IBW 172lb/78.2kg Kcals Calculated 1955-2346kcal (25-30kcal/kg) Protein Calculated 78g (1g/kg) Fluid: ml 1955-2346ml (1ml/kcal) Nutritional Problem 2. Problem Problem Inadequate oral food beverage intake related to Etiology unknown etiology aeb Signs/Symptoms: PO intake meeting 55% lower end kcal and 74% prot needs. 1. Problem Problem Altered nutrition related laboraotry values related to Etiology DM aeb Signs/Symptoms: H&P, elevated POC glucose Intervention/Recommendation Comments 1. Recommend [id number] RONEN ground to meet nutritional needs while promoting glycemic control. 2. Continue with Boost Glucose Control TID. 3. Avg PO intake is inadequate , meeting 55% lower end of kcal needs. Nursing staff to encourage and assist with meals as needed. 4. Remove "HPN - sugar free with meals for supplement 8oz TID," FNS does not honor. Expected Outcomes/Goals Expected Outcomes/Goals 1. PO intake to meet at least 75% of estimated nutritional needs.
[2017-04-04] MEDS: Atorvastatin Calcium 10 MG TAB PO SCH (20:23)
--- NOTE | 2017-04-04 23:28 | Progress Notes ---
DATE: 04/04/2017 SUBJECTIVE: Chart reviewed and the patient interviewed. Also, discussed the condition with him and I reviewed records and labs. The patient is still agitated and he is still in irritable mood. The patient also is still screaming and yelling, "help, help." He is still unable to provide any safe plan for self-care and is still restless and agitated. Otherwise, the patient is interacting minimally with others. ASSESSMENT: The patient is still agitated and is still in irritable mood. TREATMENT PLAN: We will continue monitoring his behavior and his condition closely. Also, we will continue working on his poor impulse control. Also, working with patient case coordinator in regard to discharge plans and placement issue. JOB# [id number]
[2017-04-05] MEDS: INSULIN ASPART SLIDING SCALE 100 UNITS/ML UNIT SUBQ SCH ×4 (06:32→20:53)
[2017-04-05] MEDS: Aspirin 81mg Chewable Tab PO SCH (09:52)
[2017-04-05] MEDS: Vitamin D3 2,000 IU SGL PO SCH ×2 (09:53→17:25)
[2017-04-05] MEDS: Dextromethorphan/Quinidine 20mg/10mg Cap PO SCH ×2 (09:54→17:25)
[2017-04-05] MEDS: Lactobacillus Rhamnosus 10 Billion CFU Capsule PO SCH (09:54)
--- NOTE | 2017-04-05 18:58 | Internal Medicine Prog Note ---
Internal Medicine Subjective - Subjective Patient is:: awake, in bed, confused Per staff patient has:: no adverse event Internal Medicine Objective - Results Result Diagrams: 03/28/17 18:33 03/28/17 18:33 Recent Labs: Laboratory Last Values WBC 4.9 Th/cmm (4.8-10.8) 03/28/17 18:33 RBC 3.43 Mil/cmm (3.80-5.80) L 03/28/17 18:33 Hgb 10.2 gm/dL (12.6-17.4) L 03/28/17 18:33 Hct 29.8 % (39.0-49.0) L 03/28/17 18:33 MCV 86.7 fl (80-99) 03/28/17 18: MCH 29.8 pg (27.0-31.0) 03/28/17 18: MCHC Differential 34.4 pg (28.0-36.0) 03/28/17 18:33 RDW 16.2 % (11.5-20.0) 03/28/17 18:33 Plt Count 144 Th/cmm (150-400) L 03/28/17 18:33 MPV 6.3 fl 03/28/17 18:33 Neutrophils % 53.9 % (40.0-80.0) 03/28/17 18:33 Lymphocytes % 31.2 % (20.0-50.0) 03/28/17 18:33 Monocytes % 8.3 % (2.0-10.0) 03/28/17 18:33 Eosinophils % 4.7 % (0.0-5.0) 03/28/17 18:33 Basophils % 1.9 % (0.0-2.0) 03/28/17 18:33 Sodium 136 mEq/L (136-145) 03/28/17 18:33 Potassium 4.1 mEq/L (3.5-5.1) 03/28/17 18:33 Chloride 106 mEq/L (98-107) 03/28/17 18:33 Carbon Dioxide 23.8 mEq/L (21.0-31.0) 03/28/17 18:33 Anion Gap 10.3 (7.0-16.0) 03/28/17 18:33 BUN 40 mg/dL (7-25) H 03/28/17 18:33 Creatinine 1.9 mg/dL (0.7-1.3) H 03/28/17 18:33 Est GFR ( Amer) 45.6 ml/min (>90) 03/28/17 18:33 Est GFR (Non-Af Amer) 37.7 ml/min 03/28/17 18:33 BUN/Creatinine Ratio 21.1 03/28/17 18:33 Glucose 116 mg/dL (70-105) H 03/28/17 18:33 POC Glucose 113 MG/DL (70 - 105) H 04/05/17 16:34 Calcium 9.5 mg/dL (8.6-10.3) 03/28/17 18:33 Total Bilirubin 0.3 mg/dL (0.3-1.0) 03/28/17 18:33 AST 25 U/L (13-39) 03/28/17 18:33 ALT 20 U/L (7-52) 03/28/17 18:33 Alkaline Phosphatase 89 U/L (34-104) 03/28/17 18:33 Total Protein 6.8 gm/dL (6.0-8.3) 03/28/17 18:33 Albumin 3.4 gm/dL (4.2-5.5) L 03/28/17 18:33 Globulin 3.4 gm/dL 03/28/17 18:33 Albumin/Globulin Ratio 1.0 (1.0-1.8) 03/28/17 18:33 Triglycerides 266 mg/dL (<150) H 03/28/17 18:33 Cholesterol 147 mg/dL (<200) 03/28/17 18:33 LDL Cholesterol Direct 79 mg/dL (75-193) 03/28/17 18:33 HDL Cholesterol 24 mg/dL (23-92) 03/28/17 18:33 TSH 2.65 uIU/ml (0.34-5.60) 03/28/17 18:33 Urine Source CLEAN C 03/28/17 20:00 Urine Color YELLOW 03/28/17 20:00 Urine Clarity CLEAR (CLEAR) 03/28/17 20:00 Urine pH 6.0 03/28/17 20:00 Ur Specific [place] 1.020 (1.005-1.030) 03/28/17 20:00 Urine Protein NEGATIVE mg/dL (NEGATIVE) 03/28/17 20:00 Urine Glucose (UA) NEGATIVE mg/dL (NEGATIVE) 03/28/17 20:00 Urine Ketones NEGATIVE mg/dL (NEGATIVE) 03/28/17 20:00 Urine Blood NEGATIVE (NEGATIVE) 03/28/17 20:00 Urine Nitrate NEGATIVE (NEGATIVE) 03/28/17 20:00 Urine Bilirubin NEGATIVE (NEGATIVE) 03/28/17 20:00 Urine Urobilinogen 1.0 E.U./dL (0.2 - 1.0) 03/28/17 20:00 Ur Leukocyte Esterase NEGATIVE (NEGATIVE) 03/28/17 20:00 Urine RBC NONE SEEN /hpf (0-5) 03/28/17 20:00 Urine WBC 0-2 /hpf (0-5) 03/28/17 20:00 Ur Epithelial Cells RARE /lpf (FEW) 03/28/17 20:00 Urine Bacteria FEW /hpf (NONE SEEN) 03/28/17 20:00 RPR NONREACTIVE (NONREACTIVE) 03/28/17 18:33 - Physical Exam Vitals and I&O: Vital Signs Temp 98.1 F 04/04/17 07:14 Pulse 79 04/05/17 17:24 Resp 19 04/04/17 07:14 BP 135/75 04/05/17 17:24 Pulse Ox 97 04/04/17 07:14 Intake & Output 04/04/17 04/05/17 04/05/17 18:59 06:59 18:59 Other: # Voids 2 2 Active Medications: Current Medications Acetaminophen (Tylenol) 650 mg PO Q6H PRN PRN Reason: Mild Pain/Headache/T above 101 Stop: 05/27/17 20:13 Acetaminophen/Hydrocodone Bitart ([place] 5mg/325mg) 1 tab PO Q6H PRN PRN Reason: Moderate Pain Stop: 05/28/17 09:04 Al Hydrox/Mg Hydrox/Simethicone (Maalox) 30 ml PO Q6H PRN PRN Reason: Dyspepsia Stop: 05/27/17 20:13 Aspirin (Aspirin Chewable) 81 mg PO DAILY KENDRICK Stop: 05/29/17 08:59 Last Admin: 04/05/17 09:52 Dose: Not Given Atorvastatin Calcium (Lipitor) 10 mg PO HS KENDRICK PRN Reason: Protocol Stop: 05/27/17 20:59 Last Admin: 04/04/17 20:23 Dose: 10 mg Carvedilol (Coreg) 12.5 mg PO BID KENDRICK Stop: 05/28/17 08:59 Last Admin: 04/05/17 17:24 Dose: 12.5 mg Cholecalciferol (Vitamin D3) 1,000 iu PO BID KENDRICK Stop: 05/28/17 08:59 Last Admin: 04/05/17 17:25 Dose: 1,000 iu Clopidogrel Bisulfate (Plavix) 75 mg PO DAILY KENDRICK Stop: 05/29/17 08:59 Last Admin: 04/05/17 09:53 Dose: 75 mg Dextromethorphan/Quinidine (Nuedexta 20mg-10mg) 1 cap PO BID KENDRICK Stop: 05/28/17 08:59 Last Admin: 04/05/17 17:25 Dose: 1 cap Docusate Sodium (Colace) 100 mg PO BID KENDRICK Stop: 05/28/17 08:59 Last Admin: 04/05/17 17:25 Dose: Not Given Duloxetine HCl (Cymbalta) 60 mg PO DAILY KENDRICK PRN Reason: Protocol Stop: 05/29/17 08:59 Last Admin: 04/05/17 09:52 Dose: 60 mg Folic Acid (Folate) 1 mg PO DAILY KENDRICK Stop: 05/29/17 08:59 Last Admin: 04/05/17 09:54 Dose: 1 mg Insulin Aspart (Novolog Insulin Sliding Scale) 0 units SUBQ ACHS KENDRICK PRN Reason: Protocol Stop: 05/27/17 20:59 Last Admin: 04/05/17 16:37 Dose: Not Given Lactobacillus Rhamnosus (Culturelle) 1 each PO DAILY KENDRICK Stop: 05/28/17 08:59 Last Admin: 04/05/17 09:54 Dose: 1 each Lorazepam (Ativan) 1 mg PO Q6H PRN; Protocol PRN Reason: Anxiety/Agitation Stop: 05/27/17 20:13 Last Admin: 04/02/17 01:23 Dose: 1 mg Losartan Potassium (Cozaar) 50 mg PO DAILY KENDRICK Stop: 05/28/17 08:59 Last Admin: 04/05/17 09:54 Dose: 50 mg Magnesium Hydroxide (Milk Of Magnesia) 30 ml PO HS PRN PRN Reason: Constipation Stop: 05/27/17 20:20 Megestrol Acetate (Megace) 400 mg PO BID KENDRICK Stop: 05/28/17 16:59 Last Admin: 04/05/17 17:25 Dose: 400 mg Mirtazapine (Remeron) 30 mg PO HS KENDRICK Stop: 05/27/17 20:59 Last Admin: 04/04/17 20:23 Dose: 30 mg Olanzapine (Zyprexa) 10 mg PO BID KENDRICK PRN Reason: Protocol Stop: 05/29/17 08:59 Last Admin: 04/05/17 17:25 Dose: 10 mg Sodium Phosphate (Fleet Enema) 135 ml RC DAILY PRN PRN Reason: Constipation Stop: 05/27/17 20:13 Temazepam (Restoril) 15 mg PO HS PRN; Protocol PRN Reason: Insomnia Stop: 05/27/17 20:20 Last Admin: 04/03/17 20:45 Dose: 15 mg Vitamin D (Vitamin D3) 4,000 iu PO BID KENDRICK Stop: 05/28/17 08:59 Last Admin: 04/05/17 17:25 Dose: 4,000 iu General: alert, demented HEENT: NC/AT, PERRLA, EOMI, anicteric sclerae Neck: Supple, No JVD, No thyromegaly, +2 carotid pulse wo bruit, No LAD Lungs: CTAB Cardiovascular: RRR, Normal S1, Normal S2, without murmur Abdomen: non-tender Extremities: clear Neurological: no change Internal Medicine Assmt/Plan - Assessment Assessment: 1.dm. 2.htn 3.cva. 4.psychosis. - Plan Plan: continue on current medication and diet. Nutritional Asmnt/Malnutr-PDOC - Dietary Evaluation Malnutrition Findings (Please click <Entered> for more info): Nutritional Asmnt/Malnutrition Start: 04/01/17 12: 39 Text: Status: Complete Freq: Document 04/01/17 12:39 GSUN (Rec: 04/01/17 13:07 [email or web address] [email or web address]) Nutritional Asmnt/Malnutrition Patient General Information Nutritional Screening Moderate Risk Screening Diagnosis Unspecified psychosis Pertinent Medical Hx/Surgical Hx DM, HTN, hyperlipidemia, DVT, CVA with left sided wekaness, DJD, anxiety, dperession, hx sarcoidosis Subjective Information 67 year old male from SNF. Per nursing staff, pt may be inappropriate towards staff at times. Pt was quiet, selectively responded, mostly answered yes or no during visit. Avg PO intake 63% of past 6 meals, meeting 55% lower end kcal and 74% prot needs. Pt denied GI problems, denied allergies, denied nutritional concerns. Teeth intact. RD informed pt not meeting nutritional needs, encouraged PO intake, pt remained silent. Mild wasting to clavicles. Pt report UBW 200lb, bedscale 188.3lb during visit, does not know weight trend. Current Diet Order/ Nutrition Support [facility] Pertinent Medications Maalox, Lipitor, Vitamin D3, Colace, Folate, Novolog, Culturelle, MOM, Megace, Fleet Enema, Vitamin D3 Pertinent Labs 03/28: BUN 40H, creatinine 1.9H , triglycerides 266H 04/01: POC glucose 87-142 since adm Nutritional Hx/Data Height 1.8 m Height (Calculated Centimeters) 180.3 Current Weight (lbs) 85.411 kg Weight (Calculated Kilograms) 85.4 Weight (Calculated Grams) 05589.4 Usual body Weight (lbs) 200 [place] Body Weight 172 Weight Status Overweight GI Symptoms Usual diet at home [place] [facility]: [facility], [facility], 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 Current %PO Fair (50-74%) Estimated Nutritional Goals Calories/Kcals/Kg IBW 172lb/78.2kg Kcals Calculated 1955-2346kcal (25-30kcal/kg) Protein Calculated 78g (1g/kg) Fluid: ml 1955-2346ml (1ml/kcal) Nutritional Problem 2. Problem Problem Inadequate oral food beverage intake related to Etiology unknown etiology aeb Signs/Symptoms: PO intake meeting 55% lower end kcal and 74% prot needs. 1. Problem Problem Altered nutrition related laboraotry values related to Etiology DM aeb Signs/Symptoms: H&P, elevated POC glucose Intervention/Recommendation Comments 1. Recommend [id number] RONEN ground to meet nutritional needs while promoting glycemic control. 2. Continue with Boost Glucose Control TID. 3. Avg PO intake is inadequate , meeting 55% lower end of kcal needs. Nursing staff to encourage and assist with meals as needed. 4. Remove "HPN - sugar free with meals for supplement 8oz TID," FNS does not honor. Expected Outcomes/Goals Expected Outcomes/Goals 1. PO intake to meet at least 75% of estimated nutritional needs.
[2017-04-05] MEDS: Atorvastatin Calcium 10 MG TAB PO SCH (20:52)
--- NOTE | 2017-04-05 21:47 | Progress Notes ---
DATE: 04/05/2017 SUBJECTIVE: Chart reviewed and the patient interviewed. Also discussed the patient's condition with the staff and reviewed records and labs. The patient is still in angry and in irritable mood. The patient also is still yelling and screaming "help, help." I asked the patient what he needs to get up help with and today his answer is "to get out of bed and ." Then, when asked about what he is going to do next, he could not tell me anything and indicated that he was going to go back to bed. He is still confused and he is still restless and still has periods of agitation. The patient also still has high anxiety level. Also, is still actively hallucinating and talking to himself at times. The patient also notes difficulty expressing himself and his feelings. ASSESSMENT: The patient is still psychotic and still needs close monitoring. TREATMENT PLAN: We will continue monitoring his behavior and his condition closely. Also, continue to work on behavioral modifications and adjusting psychotropic medications. JOB# [id number]
[2017-04-06] MEDS: INSULIN ASPART SLIDING SCALE 100 UNITS/ML UNIT SUBQ SCH ×4 (06:43→20:11)
[2017-04-06] MEDS: Dextromethorphan/Quinidine 20mg/10mg Cap PO SCH ×2 (08:26→16:23)
[2017-04-06] MEDS: Lactobacillus Rhamnosus 10 Billion CFU Capsule PO SCH (08:27)
[2017-04-06] MEDS: Aspirin 81mg Chewable Tab PO SCH (08:29)
[2017-04-06] MEDS: Vitamin D3 2,000 IU SGL PO SCH ×2 (08:33→16:20)
--- NOTE | 2017-04-06 10:13 | Progress Notes ---
DATE: 04/06/2017 SUBJECTIVE: The patient is currently in the hospital under the care of Dr. Goode. Not answering me this morning, refusing interview. Currently in the hospital because of aggressive behaviors. Coming in from [facility], screaming, yelling, and throwing food and objects at people, suspicious, paranoid. The patient remains impulsive, unpredictable, Dr. Goode is seeing the patient over the past few days, noting he remains angry, irritable, confused, high anxiety, noted to be actively hallucinating, mumbling, responding. MEDICATIONS: Reviewed. ASSESSMENT: The patient remains symptomatic, impulsive, unpredictable, continued safety concerns, irritability, anger. Currently on olanzapine. PLAN: Continue to monitor given recent dose adjustments. We will continue medications at current dose. We will titrate appropriately. The patient is not safe for a lower level of care. JOB# [id number]
[2017-04-06] MEDS: Atorvastatin Calcium 10 MG TAB PO SCH (20:10)
[2017-04-07] MEDS: INSULIN ASPART SLIDING SCALE 100 UNITS/ML UNIT SUBQ SCH ×4 (06:51→20:43)
[2017-04-07] MEDS: Aspirin 81mg Chewable Tab PO SCH (09:29)
[2017-04-07] MEDS: Dextromethorphan/Quinidine 20mg/10mg Cap PO SCH ×2 (09:29→16:38)
[2017-04-07] MEDS: Lactobacillus Rhamnosus 10 Billion CFU Capsule PO SCH (09:30)
[2017-04-07] MEDS: Vitamin D3 2,000 IU SGL PO SCH ×2 (09:32→16:27)
--- NOTE | 2017-04-07 18:16 | General Progress Note ---
Subjective - Review of Systems Service Date: 04/07/17 Subjective: resting comfortably no distress Objective - Results Result Diagrams: 03/28/17 18:33 03/28/17 18:33 Recent Labs: Laboratory Last Values WBC 4.9 Th/cmm (4.8-10.8) 03/28/17 18:33 RBC 3.43 Mil/cmm (3.80-5.80) L 03/28/17 18:33 Hgb 10.2 gm/dL (12.6-17.4) L 03/28/17 18:33 Hct 29.8 % (39.0-49.0) L 03/28/17 18:33 MCV 86.7 fl (80-99) 03/28/17 18:33 MCH 29.8 pg (27.0-31.0) 03/28/17 18: MCHC Differential 34.4 pg (28.0-36.0) 03/28/17 18:33 RDW 16.2 % (11.5-20.0) 03/28/17 18:33 Plt Count 144 Th/cmm (150-400) L 03/28/17 18:33 MPV 6.3 fl 03/28/17 18:33 Neutrophils % 53.9 % (40.0-80.0) 03/28/17 18:33 Lymphocytes % 31.2 % (20.0-50.0) 03/28/17 18:33 Monocytes % 8.3 % (2.0-10.0) 03/28/17 18:33 Eosinophils % 4.7 % (0.0-5.0) 03/28/17 18:33 Basophils % 1.9 % (0.0-2.0) 03/28/17 18:33 Sodium 136 mEq/L (136-145) 03/28/17 18:33 Potassium 4.1 mEq/L (3.5-5.1) 03/28/17 18:33 Chloride 106 mEq/L (98-107) 03/28/17 18:33 Carbon Dioxide 23.8 mEq/L (21.0-31.0) 03/28/17 18:33 Anion Gap 10.3 (7.0-16.0) 03/28/17 18:33 BUN 40 mg/dL (7-25) H 03/28/17 18:33 Creatinine 1.9 mg/dL (0.7-1.3) H 03/28/17 18:33 Est GFR ( Amer) 45.6 ml/min (>90) 03/28/17 18:33 Est GFR (Non-Af Amer) 37.7 ml/min 03/28/17 18:33 BUN/Creatinine Ratio 21.1 03/28/17 18:33 Glucose 116 mg/dL (70-105) H 03/28/17 18:33 POC Glucose 148 MG/DL (70 - 105) H 04/07/17 16:25 Calcium 9.5 mg/dL (8.6-10.3) 03/28/17 18:33 Total Bilirubin 0.3 mg/dL (0.3-1.0) 03/28/17 18:33 AST 25 U/L (13-39) 03/28/17 18:33 ALT 20 U/L (7-52) 03/28/17 18:33 Alkaline Phosphatase 89 U/L (34-104) 03/28/17 18:33 Total Protein 6.8 gm/dL (6.0-8.3) 03/28/17 18:33 Albumin 3.4 gm/dL (4.2-5.5) L 03/28/17 18:33 Globulin 3.4 gm/dL 03/28/17 18:33 Albumin/Globulin Ratio 1.0 (1.0-1.8) 03/28/17 18:33 Triglycerides 266 mg/dL (<150) H 03/28/17 18:33 Cholesterol 147 mg/dL (<200) 03/28/17 18:33 LDL Cholesterol Direct 79 mg/dL (75-193) 03/28/17 18:33 HDL Cholesterol 24 mg/dL (23-92) 03/28/17 18:33 TSH 2.65 uIU/ml (0.34-5.60) 03/28/17 18:33 Urine Source CLEAN C 03/28/17 20:00 Urine Color YELLOW 03/28/17 20:00 Urine Clarity CLEAR (CLEAR) 03/28/17 20:00 Urine pH 6.0 03/28/17 20:00 Ur Specific [place] 1.020 (1.005-1.030) 03/28/17 20:00 Urine Protein NEGATIVE mg/dL (NEGATIVE) 03/28/17 20:00 Urine Glucose (UA) NEGATIVE mg/dL (NEGATIVE) 03/28/17 20:00 Urine Ketones NEGATIVE mg/dL (NEGATIVE) 03/28/17 20:00 Urine Blood NEGATIVE (NEGATIVE) 03/28/17 20:00 Urine Nitrate NEGATIVE (NEGATIVE) 03/28/17 20:00 Urine Bilirubin NEGATIVE (NEGATIVE) 03/28/17 20:00 Urine Urobilinogen 1.0 E.U./dL (0.2 - 1.0) 03/28/17 20:00 Ur Leukocyte Esterase NEGATIVE (NEGATIVE) 03/28/17 20:00 Urine RBC NONE SEEN /hpf (0-5) 03/28/17 20:00 Urine WBC 0-2 /hpf (0-5) 03/28/17 20:00 Ur Epithelial Cells RARE /lpf (FEW) 03/28/17 20:00 Urine Bacteria FEW /hpf (NONE SEEN) 03/28/17 20:00 RPR NONREACTIVE (NONREACTIVE) 03/28/17 18:33 - Physical Exam Vitals and I&O: Vital Signs Temp 98.4 F 04/06/17 20:55 Pulse 70 04/07/17 16:36 Resp 20 04/07/17 08:00 BP 125/80 04/07/17 16:36 Pulse Ox 96 04/06/17 20:55 Intake & Output 04/06/17 04/07/17 04/07/17 18:59 06:59 18:59 Intake Total 120 Balance 120 Intake: Oral 120 Other: # Voids 1 Active Medications: Current Medications Acetaminophen (Tylenol) 650 mg PO Q6H PRN PRN Reason: Mild Pain/Headache/T above 101 Stop: 05/27/17 20:13 Acetaminophen/Hydrocodone Bitart ([place] 5mg/325mg) 1 tab PO Q6H PRN PRN Reason: Moderate Pain Stop: 05/28/17 09:04 Al Hydrox/Mg Hydrox/Simethicone (Maalox) 30 ml PO Q6H PRN PRN Reason: Dyspepsia Stop: 05/27/17 20:13 Aspirin (Aspirin Chewable) 81 mg PO DAILY KENDRICK Stop: 05/29/17 08:59 Last Admin: 04/07/17 09:29 Dose: 81 mg Atorvastatin Calcium (Lipitor) 10 mg PO HS KENDRICK PRN Reason: Protocol Stop: 05/27/17 20:59 Last Admin: 04/06/17 20:10 Dose: 10 mg Carvedilol (Coreg) 12.5 mg PO BID KENDRICK Stop: 05/28/17 08:59 Last Admin: 04/07/17 16:36 Dose: 12.5 mg Cholecalciferol (Vitamin D3) 1,000 iu PO BID KENDRICK Stop: 05/28/17 08:59 Last Admin: 04/07/17 16:38 Dose: 1,000 iu Clopidogrel Bisulfate (Plavix) 75 mg PO DAILY KENDRICK Stop: 05/29/17 08:59 Last Admin: 04/07/17 09:29 Dose: 75 mg Dextromethorphan/Quinidine (Nuedexta 20mg-10mg) 1 cap PO BID KENDRICK Stop: 05/28/17 08:59 Last Admin: 04/07/17 16:38 Dose: 1 cap Docusate Sodium (Colace) 100 mg PO BID KENDRICK Stop: 05/28/17 08:59 Last Admin: 04/07/17 16:37 Dose: 100 mg Duloxetine HCl (Cymbalta) 60 mg PO DAILY KENDRICK PRN Reason: Protocol Stop: 05/29/17 08:59 Last Admin: 04/07/17 09:30 Dose: 60 mg Folic Acid (Folate) 1 mg PO DAILY [facility] Stop: 05/29/17 08:59 Last Admin: 04/07/17 09:30 Dose: 1 mg Insulin Aspart (Novolog Insulin Sliding Scale) 0 units SUBQ ACHS KENDRICK PRN Reason: Protocol Stop: 05/27/17 20:59 Last Admin: 04/07/17 16:37 Dose: Not Given Lactobacillus Rhamnosus (Culturelle) 1 each PO DAILY KENDRICK Stop: 05/28/17 08:59 Last Admin: 04/07/17 09:30 Dose: 1 each Lorazepam (Ativan) 1 mg PO Q6H PRN; Protocol PRN Reason: Anxiety/Agitation Stop: 05/27/17 20:13 Last Admin: 04/07/17 16:27 Dose: 1 mg Losartan Potassium (Cozaar) 50 mg PO DAILY KENDRICK Stop: 05/28/17 08:59 Last Admin: 04/07/17 09:31 Dose: 50 mg Magnesium Hydroxide (Milk Of Magnesia) 30 ml PO HS PRN PRN Reason: Constipation Stop: 05/27/17 20:20 Megestrol Acetate (Megace) 400 mg PO BID KENDRICK Stop: 05/28/17 16:59 Last Admin: 04/07/17 16:27 Dose: 400 mg Mirtazapine (Remeron) 30 mg PO HS KENDRICK Stop: 05/27/17 20:59 Last Admin: 04/06/17 20:10 Dose: 30 mg Olanzapine (Zyprexa) 10 mg PO BID KENDRICK PRN Reason: Protocol Stop: 05/29/17 08:59 Last Admin: 04/07/17 16:27 Dose: 10 mg Sodium Phosphate (Fleet Enema) 135 ml RC DAILY PRN PRN Reason: Constipation Stop: 05/27/17 20:13 Temazepam (Restoril) 15 mg PO HS PRN; Protocol PRN Reason: Insomnia Stop: 05/27/17 20:20 Last Admin: 04/03/17 20:45 Dose: 15 mg Vitamin D (Vitamin D3) 4,000 iu PO BID KENDRICK Stop: 05/28/17 08:59 Last Admin: 04/07/17 16:27 Dose: 4,000 iu General: Alert, No acute distress HEENT: Atraumatic, EOMI Neck: Supple, JVD Cardiovascular: Regular rate, Normal S1, Normal S2, Systolic murmurs Lungs: Clear to auscultation Abdomen: Bowel sounds, Soft Extremities: Other (no edema, cyanosis, clubbing.) Neurological: Other (significant spasticity and weakness on the left side noted. ) Psych/Mental Status: Other (labile mental status.) Assessment/Plan - Assessment Assessment: 1.dm. 2.htn 3.cva. 4.psychosis. - Plan Plan: cont current treatment Nutritional Asmnt/Malnutr-PDOC - Dietary Evaluation Malnutrition Findings (Please click <Entered> for more info): Nutritional Asmnt/Malnutrition Start: 04/01/17 12: 39 Text: Status: Complete Freq: Document 04/01/17 12:39 GSUN (Rec: 04/01/17 13:07 [email or web address] [email or web address]) Nutritional Asmnt/Malnutrition Patient General Information Nutritional Screening Moderate Risk Screening Diagnosis Unspecified psychosis Pertinent Medical Hx/Surgical Hx DM, HTN, hyperlipidemia, DVT, CVA with left sided wekaness, DJD, anxiety, dperession, hx sarcoidosis Subjective Information 67 year old male from SNF. Per nursing staff, pt may be inappropriate towards staff at times. Pt was quiet, selectively responded, mostly answered yes or no during visit. Avg PO intake 63% of past 6 meals, meeting 55% lower end kcal and 74% prot needs. Pt denied GI problems, denied allergies, denied nutritional concerns. Teeth intact. RD informed pt not meeting nutritional needs, encouraged PO intake, pt remained silent. Mild wasting to clavicles. Pt report UBW 200lb, bedscale 188.3lb during visit, does not know weight trend. Current Diet Order/ [facility], [facility], [facility] Pertinent Medications Maalox, Lipitor, Vitamin D3, Colace, Folate, Novolog, Culturelle, MOM, Megace, Fleet Enema, Vitamin D3 Pertinent Labs 03/28: BUN 40H, creatinine 1.9H , triglycerides 266H 04/01: POC glucose 87-142 since adm Nutritional Hx/Data Height 1.8 m Height (Calculated Centimeters) 180.3 Current Weight (lbs) 85.411 kg Weight (Calculated Kilograms) 85.4 Weight (Calculated Grams) 99235.4 Usual body Weight (lbs) 200 [place] Body Weight 172 Weight Status Overweight GI Symptoms Usual diet at home [place] [facility]: [facility], [facility], [facility] soft 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 Current %PO Fair (50-74%) Estimated Nutritional Goals Calories/Kcals/Kg IBW 172lb/78.2kg Kcals Calculated 1955-2346kcal (25-30kcal/kg) Protein Calculated 78g (1g/kg) Fluid: ml 1955-2346ml (1ml/kcal) Nutritional Problem 2. Problem Problem Inadequate oral food beverage intake related to Etiology unknown etiology aeb Signs/Symptoms: PO intake meeting 55% lower end kcal and 74% prot needs. 1. Problem Problem Altered nutrition related laboraotry values related to Etiology DM aeb Signs/Symptoms: H&P, elevated POC glucose Intervention/Recommendation Comments 1. Recommend [id number] RONEN ground to meet nutritional needs while promoting glycemic control. 2. Continue with Boost Glucose Control TID. 3. Avg PO intake is inadequate , meeting 55% lower end of kcal needs. Nursing staff to encourage and assist with meals as needed. 4. Remove "HPN - sugar free with meals for supplement 8oz TID," FNS does not honor. Expected Outcomes/Goals Expected Outcomes/Goals 1. PO intake to meet at least 75% of estimated nutritional needs.
--- NOTE | 2017-04-07 19:45 | Progress Notes ---
DATE: 04/07/2017 SUBJECTIVE: The patient was seen, chart reviewed, discussed with staff. The patient is very altered, confused. He is speaking with me this morning, but very limited interview, only knows his name, noted to be very anxious, , yelling all the time "help, Help, help" when staff goes to see him. He will then say, "I don't need any help," does not remember asking for help, remains gravely disabled, disorganized, unable to be cared for at a lower level of care. Medications were reviewed. Labs were reviewed, noted to be with periods of psychosis. ASSESSMENT AND PLAN: The patient remains symptomatic, not safe for discharge, ruminative, confused. PLAN: Continue to monitor. Continue medications. Medications were reviewed. Consider adding Aricept and Namenda. JOB# [id number]
[2017-04-07] MEDS: Atorvastatin Calcium 10 MG TAB PO SCH (20:43)
[2017-04-08] MEDS: INSULIN ASPART SLIDING SCALE 100 UNITS/ML UNIT SUBQ SCH ×4 (07:03→21:17)
[2017-04-08] MEDS: Vitamin D3 2,000 IU SGL PO SCH ×2 (09:53→17:31)
[2017-04-08] MEDS: Dextromethorphan/Quinidine 20mg/10mg Cap PO SCH ×2 (09:54→17:31)
[2017-04-08] MEDS: Aspirin 81mg Chewable Tab PO SCH (09:54)
[2017-04-08] MEDS: Lactobacillus Rhamnosus 10 Billion CFU Capsule PO SCH (09:54)
--- NOTE | 2017-04-08 10:10 | General Progress Note ---
Subjective - Review of Systems Subjective: Patient is seen and examined. Patient is lying comfortably and denies any chest pain, shortness of breath, palpitation, dizziness, headache, nausea, vomiting, fever. Objective - Results Result Diagrams: 03/28/17 18:33 03/28/17 18:33 Recent Labs: Laboratory Last Values WBC 4.9 Th/cmm (4.8-10.8) 03/28/17 18:33 RBC 3.43 Mil/cmm (3.80-5.80) L 03/28/17 18: Hgb 10.2 gm/dL (12.6-17.4) L 03/28/17 18: Hct 29.8 % (39.0-49.0) L 03/28/17 18: MCV 86.7 fl (80-99) 03/28/17 18: MCH 29.8 pg (27.0-31.0) 03/28/17 18: MCHC Differential 34.4 pg (28.0-36.0) 03/28/17 18: RDW 16.2 % (11.5-20.0) 03/28/17 18:33 Plt Count 144 Th/cmm (150-400) L 03/28/17 18:33 MPV 6.3 fl 03/28/17 18:33 Neutrophils % 53.9 % (40.0-80.0) 03/28/17 18: Lymphocytes % 31.2 % (20.0-50.0) 03/28/17 18: Monocytes % 8.3 % (2.0-10.0) 03/28/17 18:33 Eosinophils % 4.7 % (0.0-5.0) 03/28/17 18: Basophils % 1.9 % (0.0-2.0) 03/28/17 18:33 Sodium 136 mEq/L (136-145) 03/28/17 18:33 Potassium 4.1 mEq/L (3.5-5.1) 03/28/17 18:33 Chloride 106 mEq/L (98-107) 03/28/17 18: Carbon Dioxide 23.8 mEq/L (21.0-31.0) 03/28/17 18:33 Anion Gap 10.3 (7.0-16.0) 03/28/17 18:33 BUN 40 mg/dL (7-25) H 03/28/17 18:33 Creatinine 1.9 mg/dL (0.7-1.3) H 03/28/17 18:33 Est GFR ( Amer) 45.6 ml/min (>90) 03/28/17 18:33 Est GFR (Non-Af Amer) 37.7 ml/min 03/28/17 18:33 BUN/Creatinine Ratio 21.1 03/28/17 18:33 Glucose 116 mg/dL (70-105) H 03/28/17 18:33 POC Glucose 101 MG/DL (70 - 105) 04/08/17 06:04 Calcium 9.5 mg/dL (8.6-10.3) 03/28/17 18:33 Total Bilirubin 0.3 mg/dL (0.3-1.0) 03/28/17 18:33 AST 25 U/L (13-39) 03/28/17 18:33 ALT 20 U/L (7-52) 03/28/17 18:33 Alkaline Phosphatase 89 U/L (34-104) 03/28/17 18:33 Total Protein 6.8 gm/dL (6.0-8.3) 03/28/17 18:33 Albumin 3.4 gm/dL (4.2-5.5) L 03/28/17 18:33 Globulin 3.4 gm/dL 03/28/17 18:33 Albumin/Globulin Ratio 1.0 (1.0-1.8) 03/28/17 18:33 Triglycerides 266 mg/dL (<150) H 03/28/17 18:33 Cholesterol 147 mg/dL (<200) 03/28/17 18:33 LDL Cholesterol Direct 79 mg/dL (75-193) 03/28/17 18:33 HDL Cholesterol 24 mg/dL (23-92) 03/28/17 18:33 TSH 2.65 uIU/ml (0.34-5.60) 03/28/17 18:33 Urine Source CLEAN C 03/28/17 20:00 Urine Color YELLOW 03/28/17 20:00 Urine Clarity CLEAR (CLEAR) 03/28/17 20:00 Urine pH 6.0 03/28/17 20:00 Ur Specific [place] 1.020 (1.005-1.030) 03/28/17 20:00 Urine Protein NEGATIVE mg/dL (NEGATIVE) 03/28/17 20:00 Urine Glucose (UA) NEGATIVE mg/dL (NEGATIVE) 03/28/17 20:00 Urine Ketones NEGATIVE mg/dL (NEGATIVE) 03/28/17 20:00 Urine Blood NEGATIVE (NEGATIVE) 03/28/17 20:00 Urine Nitrate NEGATIVE (NEGATIVE) 03/28/17 20:00 Urine Bilirubin NEGATIVE (NEGATIVE) 03/28/17 20:00 Urine Urobilinogen 1.0 E.U./dL (0.2 - 1.0) 03/28/17 20:00 Ur Leukocyte Esterase NEGATIVE (NEGATIVE) 03/28/17 20:00 Urine RBC NONE SEEN /hpf (0-5) 03/28/17 20:00 Urine WBC 0-2 /hpf (0-5) 03/28/17 20:00 Ur Epithelial Cells RARE /lpf (FEW) 03/28/17 20:00 Urine Bacteria FEW /hpf (NONE SEEN) 03/28/17 20:00 RPR NONREACTIVE (NONREACTIVE) 03/28/17 18:33 - Physical Exam Vitals and I&O: Vital Signs Temp 98.8 F 04/08/17 06:16 Pulse 86 04/08/17 09:56 Resp 20 04/08/17 06:16 BP 126/93 04/08/17 09:56 Pulse Ox 97 04/08/17 06:16 Intake & Output 04/07/17 04/08/17 04/08/17 18:59 06:59 18:59 Intake Total 890 Balance 890 Intake: Oral 890 Other: # Voids 3 # Bowel Movements 0 Active Medications: Current Medications Acetaminophen (Tylenol) 650 mg PO Q6H PRN PRN Reason: Mild Pain/Headache/T above 101 Stop: 05/27/17 20:13 Acetaminophen/Hydrocodone Bitart ([place] 5mg/325mg) 1 tab PO Q6H PRN PRN Reason: Moderate Pain Stop: 05/28/17 09:04 Al Hydrox/Mg Hydrox/Simethicone (Maalox) 30 ml PO Q6H PRN PRN Reason: Dyspepsia Stop: 05/27/17 20:13 Aspirin (Aspirin Chewable) 81 mg PO DAILY KENDRICK Stop: 05/29/17 08:59 Last Admin: 04/08/17 09:54 Dose: 81 mg Atorvastatin Calcium (Lipitor) 10 mg PO HS ON LICENSE OF [facility] PRN Reason: Protocol Stop: 05/27/17 20:59 Last Admin: 04/07/17 20:43 Dose: 10 mg Carvedilol (Coreg) 12.5 mg PO BID KENDRICK Stop: 05/28/17 08:59 Last Admin: 04/08/17 09:56 Dose: 12.5 mg Cholecalciferol (Vitamin D3) 1,000 iu PO BID KENDRICK Stop: 05/28/17 08:59 Last Admin: 04/08/17 09:56 Dose: 1,000 iu Clopidogrel Bisulfate (Plavix) 75 mg PO DAILY ON LICENSE OF [facility] Stop: 05/29/17 08:59 Last Admin: 04/08/17 09:55 Dose: 75 mg Dextromethorphan/Quinidine (Nuedexta 20mg-10mg) 1 cap PO BID KENDRICK Stop: 05/28/17 08:59 Last Admin: 04/08/17 09:54 Dose: 1 cap Docusate Sodium (Colace) 100 mg PO BID KENDRICK Stop: 05/28/17 08:59 Last Admin: 04/08/17 09:57 Dose: 100 mg Duloxetine HCl (Cymbalta) 60 mg PO DAILY ON LICENSE OF [facility] PRN Reason: Protocol Stop: 05/29/17 08:59 Last Admin: 04/08/17 09:56 Dose: 60 mg Folic Acid (Folate) 1 mg PO DAILY KENDRICK Stop: 05/29/17 08:59 Last Admin: 04/08/17 09:56 Dose: 1 mg Insulin Aspart (Novolog Insulin Sliding Scale) 0 units SUBQ ACHS KENDRICK PRN Reason: Protocol Stop: 05/27/17 20:59 Last Admin: 04/08/17 07:03 Dose: Not Given Lactobacillus Rhamnosus (Culturelle) 1 each PO DAILY ON LICENSE OF [facility] Stop: 05/28/17 08:59 Last Admin: 04/08/17 09:54 Dose: 1 each Lorazepam (Ativan) 1 mg PO Q6H PRN; Protocol PRN Reason: Anxiety/Agitation Stop: 05/27/17 20:13 Last Admin: 04/07/17 16:27 Dose: 1 mg Losartan Potassium (Cozaar) 50 mg PO DAILY ON LICENSE OF [facility] Stop: 05/28/17 08:59 Last Admin: 04/08/17 09:55 Dose: 50 mg Magnesium Hydroxide (Milk Of Magnesia) 30 ml PO HS PRN PRN Reason: Constipation Stop: 05/27/17 20:20 Megestrol Acetate (Megace) 400 mg PO BID KENDRICK Stop: 05/28/17 16:59 Last Admin: 04/08/17 09:53 Dose: 400 mg Mirtazapine (Remeron) 30 mg PO HS KENDRICK Stop: 05/27/17 20:59 Last Admin: 04/07/17 20:43 Dose: 30 mg Olanzapine (Zyprexa) 10 mg PO BID KENDRICK PRN Reason: Protocol Stop: 05/29/17 08:59 Last Admin: 04/08/17 09:54 Dose: 10 mg Sodium Phosphate (Fleet Enema) 135 ml RC DAILY PRN PRN Reason: Constipation Stop: 05/27/17 20:13 Temazepam (Restoril) 15 mg PO HS PRN; Protocol PRN Reason: Insomnia Stop: 05/27/17 20:20 Last Admin: 04/03/17 20:45 Dose: 15 mg Vitamin D (Vitamin D3) 4,000 iu PO BID KENDRICK Stop: 05/28/17 08:59 Last Admin: 04/08/17 09:53 Dose: 4,000 iu General: Alert, No acute distress HEENT: Atraumatic, EOMI Neck: Supple, JVD Cardiovascular: Regular rate, Normal S1, Normal S2, Systolic murmurs Lungs: Clear to auscultation Abdomen: Bowel sounds, Soft Extremities: Other (no edema, cyanosis, clubbing.) Neurological: Other (significant spasticity and weakness on the left side noted. ) Psych/Mental Status: Other (labile mental status.) Assessment/Plan - Assessment Assessment: Psychiatric disorder Diabetes mellitus. Hypertension. CVA with left-sided weakness. DJD. Fall risk. History of sarcoidosis. History of DVT. Upper GI bleed history. - Plan Plan: Diabetes management. Fall precautions. Psychotic medications and psych follow-up General nursing care Monitor blood pressure Antihypertensive medication Statins. Anticoagulation therapy. Management of his chronic medical illness as ordered. Care plan reviewed and discussed. Nutritional Asmnt/Malnutr-PDOC - Dietary Evaluation Malnutrition Findings (Please click <Entered> for more info): Nutritional Asmnt/Malnutrition Start: 04/01/17 12: 39 Text: Status: Complete Freq: Document 04/01/17 12:39 GSUN (Rec: 04/01/17 13:07 [email or web address] [email or web address]) Nutritional Asmnt/Malnutrition Patient General Information Nutritional Screening Moderate Risk Screening Diagnosis Unspecified psychosis Pertinent Medical Hx/Surgical Hx DM, HTN, hyperlipidemia, DVT, CVA with left sided wekaness, DJD, anxiety, dperession, hx sarcoidosis Subjective Information 67 year old male from SNF. Per nursing staff, pt may be inappropriate towards staff at times. Pt was quiet, selectively responded, mostly answered yes or no during visit. Avg PO intake 63% of past 6 meals, meeting 55% lower end kcal and 74% prot needs. Pt denied GI problems, denied allergies, denied nutritional concerns. Teeth intact. RD informed pt not meeting nutritional needs, encouraged PO intake, pt remained silent. Mild wasting to clavicles. Pt report UBW 200lb, bedscale 188.3lb during visit, does not know weight trend. Current Diet Order/ Nutrition [facility], [facility] soft ground Pertinent Medications Maalox, Lipitor, Vitamin D3, Colace, Folate, Novolog, Culturelle, MOM, Megace, Fleet Enema, Vitamin D3 Pertinent Labs 03/28: BUN 40H, creatinine 1.9H , triglycerides 266H 04/01: POC glucose 87-142 since adm Nutritional Hx/Data Height 1.8 m Height (Calculated Centimeters) 180.3 Current Weight (lbs) 85.411 kg Weight (Calculated Kilograms) 85.4 Weight (Calculated Grams) 78283.4 Usual body Weight (lbs) 200 [place] Body Weight 172 Weight Status Overweight GI Symptoms Usual diet at home [place] [facility]: [facility], RONEN, [facility] soft 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 Current %PO Fair (50-74%) Estimated Nutritional Goals Calories/Kcals/Kg IBW 172lb/78.2kg Kcals Calculated 1955-2346kcal (25-30kcal/kg) Protein Calculated 78g (1g/kg) Fluid: ml 1955-2346ml (1ml/kcal) Nutritional Problem 2. Problem Problem Inadequate oral food beverage intake related to Etiology unknown etiology aeb Signs/Symptoms: PO intake meeting 55% lower end kcal and 74% prot needs. 1. Problem Problem Altered nutrition related laboraotry values related to Etiology DM aeb Signs/Symptoms: H&P, elevated POC glucose Intervention/Recommendation Comments 1. Recommend [id number] RONEN ground to meet nutritional needs while promoting glycemic control. 2. Continue with Boost Glucose Control TID. 3. Avg PO intake is inadequate , meeting 55% lower end of kcal needs. Nursing staff to encourage and assist with meals as needed. 4. Remove "HPN - sugar free with meals for supplement 8oz TID," FNS does not honor. Expected Outcomes/Goals Expected Outcomes/Goals 1. PO intake to meet at least 75% of estimated nutritional needs.
[2017-04-08] MEDS: Atorvastatin Calcium 10 MG TAB PO SCH (21:14)
--- NOTE | 2017-04-08 23:34 | Progress Notes ---
DATE: 04/08/2017 Case was discussed with staff of the patient, reviewed records. Covering for Dr. Goode. This is a 67-year-old male who was admitted on 03/28/2017 because of agitation and irritability. He was evaluated by Dr. Goode. He came from [facility] because of increased agitation and aggressive behavior, screaming, yelling, throwing food and other objects at the staff at the facility. Unable to follow any directions. He has a history of dementia and psychosis. He is on Nuedexta, Remeron, and Zyprexa. The patient continues to be unpredictable, impulsive, and needing redirection. Continues to have poor insight. Continues to be unable to make safe plan for self-care. He is also on Cymbalta [address] Gregg, and insulin, losartan, and the Remeron 30 mg at bedtime, increased by Dr. Goode. Also, olanzapine was increased on 03/30/2017 to 10 mg at bedtime twice a day. He is on Restoril as needed for sleep. No side effects, no sedation, and no nausea. Still unpredictable, impulsive with episodes of agitation, yelling, and screaming. No side effects with the medication. We will continue to work with the patient in group therapy, milieu therapy, and adjust medication as needed. JOB# [id number]
[2017-04-09] MEDS: INSULIN ASPART SLIDING SCALE 100 UNITS/ML UNIT SUBQ SCH ×4 (06:56→21:00)
--- NOTE | 2017-04-09 08:54 | General Progress Note ---
Subjective - Review of Systems Subjective: Patient is seen and examined. Patient is lying comfortably and denies any chest pain, shortness of breath, palpitation, dizziness, headache, nausea, vomiting, fever. Objective - Results Result Diagrams: 03/28/17 18:33 03/28/17 18:33 Recent Labs: Laboratory Last Values WBC 4.9 Th/cmm (4.8-10.8) 03/28/17 18:33 RBC 3.43 Mil/cmm (3.80-5.80) L 03/28/17 18: Hgb 10.2 gm/dL (12.6-17.4) L 03/28/17 18: Hct 29.8 % (39.0-49.0) L 03/28/17 18: MCV 86.7 fl (80-99) 03/28/17 18: MCH 29.8 pg (27.0-31.0) 03/28/17 18: MCHC Differential 34.4 pg (28.0-36.0) 03/28/17 18: RDW 16.2 % (11.5-20.0) 03/28/17 18:33 Plt Count 144 Th/cmm (150-400) L 03/28/17 18:33 MPV 6.3 fl 03/28/17 18:33 Neutrophils % 53.9 % (40.0-80.0) 03/28/17 18: Lymphocytes % 31.2 % (20.0-50.0) 03/28/17 18: Monocytes % 8.3 % (2.0-10.0) 03/28/17 18:33 Eosinophils % 4.7 % (0.0-5.0) 03/28/17 18: Basophils % 1.9 % (0.0-2.0) 03/28/17 18:33 Sodium 136 mEq/L (136-145) 03/28/17 18:33 Potassium 4.1 mEq/L (3.5-5.1) 03/28/17 18:33 Chloride 106 mEq/L (98-107) 03/28/17 18: Carbon Dioxide 23.8 mEq/L (21.0-31.0) 03/28/17 18:33 Anion Gap 10.3 (7.0-16.0) 03/28/17 18:33 BUN 40 mg/dL (7-25) H 03/28/17 18:33 Creatinine 1.9 mg/dL (0.7-1.3) H 03/28/17 18:33 Est GFR ( Amer) 45.6 ml/min (>90) 03/28/17 18:33 Est GFR (Non-Af Amer) 37.7 ml/min 03/28/17 18:33 BUN/Creatinine Ratio 21.1 03/28/17 18:33 Glucose 116 mg/dL (70-105) H 03/28/17 18:33 POC Glucose 84 MG/DL (70 - 105) 04/09/17 06:17 Calcium 9.5 mg/dL (8.6-10.3) 03/28/17 18:33 Total Bilirubin 0.3 mg/dL (0.3-1.0) 03/28/17 18:33 AST 25 U/L (13-39) 03/28/17 18:33 ALT 20 U/L (7-52) 03/28/17 18:33 Alkaline Phosphatase 89 U/L (34-104) 03/28/17 18:33 Total Protein 6.8 gm/dL (6.0-8.3) 03/28/17 18:33 Albumin 3.4 gm/dL (4.2-5.5) L 03/28/17 18:33 Globulin 3.4 gm/dL 03/28/17 18:33 Albumin/Globulin Ratio 1.0 (1.0-1.8) 03/28/17 18:33 Triglycerides 266 mg/dL (<150) H 03/28/17 18:33 Cholesterol 147 mg/dL (<200) 03/28/17 18:33 LDL Cholesterol Direct 79 mg/dL (75-193) 03/28/17 18:33 HDL Cholesterol 24 mg/dL (23-92) 03/28/17 18:33 TSH 2.65 uIU/ml (0.34-5.60) 03/28/17 18:33 Urine Source CLEAN C 03/28/17 20:00 Urine Color YELLOW 03/28/17 20:00 Urine Clarity CLEAR (CLEAR) 03/28/17 20:00 Urine pH 6.0 03/28/17 20:00 Ur Specific [place] 1.020 (1.005-1.030) 03/28/17 20:00 Urine Protein NEGATIVE mg/dL (NEGATIVE) 03/28/17 20:00 Urine Glucose (UA) NEGATIVE mg/dL (NEGATIVE) 03/28/17 20:00 Urine Ketones NEGATIVE mg/dL (NEGATIVE) 03/28/17 20:00 Urine Blood NEGATIVE (NEGATIVE) 03/28/17 20:00 Urine Nitrate NEGATIVE (NEGATIVE) 03/28/17 20:00 Urine Bilirubin NEGATIVE (NEGATIVE) 03/28/17 20:00 Urine Urobilinogen 1.0 E.U./dL (0.2 - 1.0) 03/28/17 20:00 Ur Leukocyte Esterase NEGATIVE (NEGATIVE) 03/28/17 20:00 Urine RBC NONE SEEN /hpf (0-5) 03/28/17 20:00 Urine WBC 0-2 /hpf (0-5) 03/28/17 20:00 Ur Epithelial Cells RARE /lpf (FEW) 03/28/17 20:00 Urine Bacteria FEW /hpf (NONE SEEN) 03/28/17 20:00 RPR NONREACTIVE (NONREACTIVE) 03/28/17 18:33 - Physical Exam Vitals and I&O: Vital Signs Temp 98.2 F 04/09/17 06:52 Pulse 83 04/09/17 06:52 Resp 20 04/09/17 06:52 BP 110/74 04/09/17 06:52 Pulse Ox 98 04/09/17 06:52 Intake & Output 04/08/17 04/09/17 04/09/17 18:59 06:59 18:59 Intake Total 360 Balance 360 Intake: Oral 360 Other: # Voids 1 Active Medications: Current Medications Acetaminophen (Tylenol) 650 mg PO Q6H PRN PRN Reason: Mild Pain/Headache/T above 101 Stop: 05/27/17 20:13 Acetaminophen/Hydrocodone Bitart ([place] 5mg/325mg) 1 tab PO Q6H PRN PRN Reason: Moderate Pain Stop: 05/28/17 09:04 Al Hydrox/Mg Hydrox/Simethicone (Maalox) 30 ml PO Q6H PRN PRN Reason: Dyspepsia Stop: 05/27/17 20:13 Aspirin (Aspirin Chewable) 81 mg PO DAILY KENDRICK Stop: 05/29/17 08:59 Last Admin: 04/08/17 09:54 Dose: 81 mg Atorvastatin Calcium (Lipitor) 10 mg PO HS KENDRICK PRN Reason: Protocol Stop: 05/27/17 20:59 Last Admin: 04/08/17 21:14 Dose: 10 mg Carvedilol (Coreg) 12.5 mg PO BID KENDRICK Stop: 05/28/17 08:59 Last Admin: 04/08/17 17:31 Dose: Not Given Cholecalciferol (Vitamin D3) 1,000 iu PO BID KENDRICK Stop: 05/28/17 08:59 Last Admin: 04/08/17 17:32 Dose: 1,000 iu Clopidogrel Bisulfate (Plavix) 75 mg PO DAILY KENDRICK Stop: 05/29/17 08:59 Last Admin: 04/08/17 09:55 Dose: 75 mg Dextromethorphan/Quinidine (Nuedexta 20mg-10mg) 1 cap PO BID KENDRICK Stop: 05/28/17 08:59 Last Admin: 04/08/17 17:31 Dose: 1 cap Docusate Sodium (Colace) 100 mg PO BID KENDRICK Stop: 05/28/17 08:59 Last Admin: 04/08/17 17:31 Dose: 100 mg Duloxetine HCl (Cymbalta) 60 mg PO DAILY KENDRICK PRN Reason: Protocol Stop: 05/29/17 08:59 Last Admin: 04/08/17 09:56 Dose: 60 mg Folic Acid (Folate) 1 mg PO DAILY KENDRICK Stop: 05/29/17 08:59 Last Admin: 04/08/17 09:56 Dose: 1 mg Insulin Aspart (Novolog Insulin Sliding Scale) 0 units SUBQ ACHS KENDRICK PRN Reason: Protocol Stop: 05/27/17 20:59 Last Admin: 04/09/17 06:56 Dose: Not Given Lactobacillus Rhamnosus (Culturelle) 1 each PO DAILY KENDRICK Stop: 05/28/17 08:59 Last Admin: 04/08/17 09:54 Dose: 1 each Lorazepam (Ativan) 1 mg PO Q6H PRN; Protocol PRN Reason: Anxiety/Agitation Stop: 05/27/17 20:13 Last Admin: 04/07/17 16:27 Dose: 1 mg Losartan Potassium (Cozaar) 50 mg PO DAILY KENDRICK Stop: 05/28/17 08:59 Last Admin: 04/08/17 09:55 Dose: 50 mg Magnesium Hydroxide (Milk Of Magnesia) 30 ml PO HS PRN PRN Reason: Constipation Stop: 05/27/17 20:20 Megestrol Acetate (Megace) 400 mg PO BID [facility] Stop: 05/28/17 16:59 Last Admin: 04/08/17 17:32 Dose: 400 mg Mirtazapine (Remeron) 30 mg PO HS KENDRICK Stop: 05/27/17 20:59 Last Admin: 04/08/17 21:15 Dose: 30 mg Olanzapine (Zyprexa) 10 mg PO BID KENDRICK PRN Reason: Protocol Stop: 05/29/17 08:59 Last Admin: 04/08/17 17:30 Dose: 10 mg Sodium Phosphate (Fleet Enema) 135 ml RC DAILY PRN PRN Reason: Constipation Stop: 05/27/17 20:13 Temazepam (Restoril) 15 mg PO HS PRN; Protocol PRN Reason: Insomnia Stop: 05/27/17 20:20 Last Admin: 04/08/17 21:15 Dose: 15 mg Vitamin D (Vitamin D3) 4,000 iu PO BID [facility] Stop: 05/28/17 08:59 Last Admin: 04/08/17 17:31 Dose: 4,000 iu General: Alert, No acute distress HEENT: Atraumatic, EOMI Neck: Supple, JVD Cardiovascular: Regular rate, Normal S1, Normal S2, Systolic murmurs Lungs: Clear to auscultation Abdomen: Bowel sounds, Soft Extremities: Other (no edema, cyanosis, clubbing.) Neurological: Other (significant spasticity and weakness on the left side noted. ) Psych/Mental Status: Other (labile mental status.) Assessment/Plan - Assessment Assessment: Psychiatric disorder. Diabetes mellitus. Hypertension. CVA with left-sided weakness. DJD. Fall risk. History of sarcoidosis. History of DVT. Upper GI bleed history. - Plan Plan: Diabetes management. Fall precautions. Psychotic medications and psych follow-up General nursing care Monitor blood pressure Antihypertensive medication Statins. Anticoagulation therapy. Management of his chronic medical illness as ordered. Care plan reviewed and discussed. Nutritional Asmnt/Malnutr-PDOC - Dietary Evaluation Malnutrition Findings (Please click <Entered> for more info): Nutritional Asmnt/Malnutrition Start: 04/01/17 12: 39 Text: Status: Complete Freq: Document 04/01/17 12:39 GSUN (Rec: 04/01/17 13:07 [email or web address] [email or web address]) Nutritional Asmnt/Malnutrition Patient General Information Nutritional Screening Moderate Risk Screening Diagnosis Unspecified psychosis Pertinent Medical Hx/Surgical Hx DM, HTN, hyperlipidemia, DVT, CVA with left sided wekaness, DJD, anxiety, dperession, hx sarcoidosis Subjective Information 67 year old male from SNF. Per nursing staff, pt may be inappropriate towards staff at times. Pt was quiet, selectively responded, mostly answered yes or no during visit. Avg PO intake 63% of past 6 meals, meeting 55% lower end kcal and 74% prot needs. Pt denied GI problems, denied allergies, denied nutritional concerns. Teeth intact. RD informed pt not meeting nutritional needs, encouraged PO intake, pt remained silent. Mild wasting to clavicles. Pt report UBW 200lb, bedscale 188.3lb during visit, does not know weight trend. Current Diet Order/ Nutrition Support [facility], RONEN, [facility] soft ground Pertinent Medications Maalox, Lipitor, Vitamin D3, Colace, Folate, Novolog, Culturelle, MOM, Megace, Fleet Enema, Vitamin D3 Pertinent Labs 03/28: BUN 40H, creatinine 1.9H , triglycerides 266H 04/01: POC glucose 87-142 since adm Nutritional Hx/Data Height 1.8 m Height (Calculated Centimeters) 180.3 Current Weight (lbs) 85.411 kg Weight (Calculated Kilograms) 85.4 Weight (Calculated Grams) 90143.4 Usual body Weight (lbs) 200 [place] Body Weight 172 Weight Status Overweight GI Symptoms Usual diet at home [place] [facility]: [facility], RONEN, [facility] soft 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 Current %PO Fair (50-74%) Estimated Nutritional Goals Calories/Kcals/Kg IBW 172lb/78.2kg Kcals Calculated 1955-2346kcal (25-30kcal/kg) Protein Calculated 78g (1g/kg) Fluid: ml 1955-2346ml (1ml/kcal) Nutritional Problem 2. Problem Problem Inadequate oral food beverage intake related to Etiology unknown etiology aeb Signs/Symptoms: PO intake meeting 55% lower end kcal and 74% prot needs. 1. Problem Problem Altered nutrition related laboraotry values related to Etiology DM aeb Signs/Symptoms: H&P, elevated POC glucose Intervention/Recommendation Comments 1. Recommend [id number] RONEN ground to meet nutritional needs while promoting glycemic control. 2. Continue with Boost Glucose Control TID. 3. Avg PO intake is inadequate , meeting 55% lower end of kcal needs. Nursing staff to encourage and assist with meals as needed. 4. Remove "HPN - sugar free with meals for supplement 8oz TID," FNS does not honor. Expected Outcomes/Goals Expected Outcomes/Goals 1. PO intake to meet at least 75% of estimated nutritional needs.
[2017-04-09] MEDS: Dextromethorphan/Quinidine 20mg/10mg Cap PO SCH ×2 (08:57→17:30)
[2017-04-09] MEDS: Aspirin 81mg Chewable Tab PO SCH (09:00)
[2017-04-09] MEDS: Lactobacillus Rhamnosus 10 Billion CFU Capsule PO SCH (09:00)
[2017-04-09] MEDS: Vitamin D3 2,000 IU SGL PO SCH ×2 (09:01→17:30)
[2017-04-09] MEDS: Atorvastatin Calcium 10 MG TAB PO SCH (20:16)
--- NOTE | 2017-04-09 23:43 | Progress Notes ---
DATE: 04/09/2017 Case was discussed with staff of the patient, reviewed records. The patient continues to be confused; however, in general, he has shown progress, though able to come to the dining room today, he is less isolative. He is sleeping better, eating better. He is compliant with the medication with no side effects, no sedation, no nausea, no extrapyramidal symptoms. We will continue to work with the patient in group therapy, milieu therapy, and adjust the medication as needed. JOB# [id number]
[2017-04-10] MEDS: INSULIN ASPART SLIDING SCALE 100 UNITS/ML UNIT SUBQ SCH ×2 (06:57→13:20)
[2017-04-10] MEDS: Aspirin 81mg Chewable Tab PO SCH (09:28)
[2017-04-10] MEDS: Dextromethorphan/Quinidine 20mg/10mg Cap PO SCH (09:28)
[2017-04-10] MEDS: Lactobacillus Rhamnosus 10 Billion CFU Capsule PO SCH (09:29)
[2017-04-10] MEDS: Vitamin D3 2,000 IU SGL PO SCH (09:37)
--- NOTE | 2017-04-10 21:03 | Discharge Summary ---
DATE OF DISCHARGE: 04/10/2017 FINAL DIAGNOSIS/PRIMARY DIAGNOSIS: Unspecified psychosis. SECONDARY DIAGNOSIS: Dementia, moderate to severe, with psychotic features. REASON FOR HOSPITALIZATION: The patient was admitted to the hospital because of increased agitation, irritability, and aggressive behavior, as well as depression. HOSPITAL COURSE: The patient continued to be agitated and in angry and in irritable mood. The patient also was having severe mood swings. The patient continuously was yelling and screaming, "help, help." Also, was having difficulty following directions. The patient was given Zyprexa and the dose adjusted to 10 mg twice a day and Cymbalta in a dose of 60 mg every day. Gradually, the patient's affect was brighter. The patient was less irritable and less agitated. The patient was discharged from the hospital back to [facility]. PHYSICAL EXAMINATION: During hospitalization, the patient had no acute medical problems. AFTER DISCHARGE PLANS: The patient discharged from the hospital with plans to continue his treatment in [facility]. EXPECTED OUTCOME AFTER DISCHARGE: Fair if the patient continues to take his psychotropic medications and followup with discharge plans. JOB# [id number]
--- NOTE | 2017-04-10 23:32 | Progress Notes ---
DATE: 04/10/2017 SUBJECTIVE: Chart reviewed and the patient interviewed. Also, discussed the patient's condition with the staff and reviewed records and labs. The patient is still yelling and screaming "help, help." Also, still needs lots of redirections. The patient also is still having anger and irritability and he is still agitated. He also still needs lots of redirections. On the other hand, it is slightly easier to redirect him and he seems to be less depressed. Thought processes are circumstantial and disorganized. He also seems to be suspicious and paranoid during the interview and personal hygiene is still poor. ASSESSMENT: The patient is still psychotic and gravely disabled. TREATMENT PLAN: Continue Zyprexa and continue Cymbalta same dose. Also, working with his case operator in regard to placement and we will try to place the patient and we will discuss with his case operator. JOB# [id number]
== END 2017-04-10 14:20 | disposition home or self-care (01) | DRG 885 ==
LOC: ER 18:12 → GERO 19:20
PROVIDERS: ADMIT Psychiatry & Neurology Psychiatry; ATTEND Psychiatry & Neurology Psychiatry
DX: F29 Unspecified psychosis not due to a substance or known physiological condition (principal); F03.91 Unspecified dementia, unspecified severity, with behavioral disturbance; E11.22 Type 2 diabetes mellitus with diabetic chronic kidney disease; I69.354 Hemiplegia and hemiparesis following cerebral infarction affecting left non-dominant side; E78.5 Hyperlipidemia, unspecified; M19.90 Unspecified osteoarthritis, unspecified site; I12.9 Hypertensive chronic kidney disease with stage 1 through stage 4 chronic kidney disease, or unspecified chronic kidney disease; N18.9 Chronic kidney disease, unspecified; D64.9 Anemia, unspecified; D86.9 Sarcoidosis, unspecified; F41.9 Anxiety disorder, unspecified; I25.10 Atherosclerotic heart disease of native coronary artery without angina pectoris; E11.51 Type 2 diabetes mellitus with diabetic peripheral angiopathy without gangrene; E78.00 Pure hypercholesterolemia, unspecified; F32.9 Major depressive disorder, single episode, unspecified; Z79.01 Long term (current) use of anticoagulants; Z83.3 Family history of diabetes mellitus; Z82.49 Family history of ischemic heart disease and other diseases of the circulatory system; Z91.81 History of falling; Z86.718 Personal history of other venous thrombosis and embolism
CPT/HCPCS: 36415-UA; 80053-TC; 80061-TC; 81001-TC; 82948-90; 84443-TC; 85025-TC; 86592-TC; 93005; 97530; J1815; J7051; X3904; Z7610